=== PATIENT | male | born 1940 | race Caucasian/White ===

== ENCOUNTER 2016-08-02 01:28 | Inpatient (IN) ==
[2016-08-02] MEDS ORDERED: Benzonatate 100 MG CAPSULE PO PRN (03:02)
[2016-08-02] MEDS ORDERED: *HR* OxyCODONE/APAP 5/325 TABLET PO PRN ×2 (03:02→11:00)
[2016-08-02] MEDS ORDERED: Nitroglycerin 0.4 MG TAB.SUBL SL PRN (03:02)
[2016-08-02] MEDS ORDERED: *HR* Morphine 2 MG/ML SYRINGE IVP PRN ×2 (03:08→11:00)
[2016-08-02] MEDS ORDERED: Dextrose Gel 15 GM PO PRN ×2 (03:08)
[2016-08-02] MEDS ORDERED: Ondansetron 4 MG/2 ML VIAL IVP PRN (03:08)
[2016-08-02] MEDS ORDERED: D5% in Water 1,000 ML IVC PRN (03:08)
[2016-08-02] MEDS ORDERED: Naloxone 0.4 MG/ML INJ IVP PRN (03:08)
[2016-08-02] MEDS ORDERED: *HR* Dextrose 50 % in Water (Syg) 50 ML SYRINGE IVP PRN (03:08)
[2016-08-02] MEDS ORDERED: Acetaminophen 325 MG TABLET PO PRN (03:08)
--- NOTE | 2016-08-02 03:14 | Internal Med History&Physical ---
Date of Encounter: 08/02/16 Time of Encounter: 03:13 Assessment and Plan (1) Accelerated hypertension Current visit: Yes Status: Acute Uncontrolled hypertension Increased dose of amlodipine from 5 up to 10 mg daily Increase frequency of hydralazine from 3 times a day up to 4 times a day, add hydralazine IV as needed Continue Coreg (2) Elevated troponin Current visit: Yes Status: Acute Chronically elevated troponins Continue telemetry, trend troponins, the patient has been evaluated in the past and only medical management has been recommended Has history of CAD status post stents and CABG, continue Ranexa and Imdur Consider cardiology consult (3) Chest pain Current visit: No Status: Acute The patient will be admitted for observation, she is a DNR CC, time spent on this admission 40 minutes. Qualifiers: Chest pain type: unspecified Qualified Code(s): R07.9 - Chest pain, unspecified (4) CHF (congestive heart failure) Current visit: No Status: Acute Continue Bumex as the patient still makes urine Qualifiers: Congestive heart failure type: diastolic Congestive heart failure chronicity: unspecified congestive heart failure chronicity Qualified Code(s) : I50.30 - Unspecified diastolic (congestive) heart failure (5) DM type 2 (diabetes mellitus, type 2) Current visit: No Status: Chronic Continue insulin Qualifiers: Diabetes mellitus complication status: without complication Diabetes mellitus halfway insulin use: with halfway use Qualified Code(s): E11.9 - Type 2 diabetes mellitus without complications; Z79.4 - terminal clerk (current) use of insulin (6) Atrial fibrillation Current visit: No Status: Chronic Continue Coumadin at home doses Qualifiers: Atrial fibrillation type: chronic Qualified Code(s): I48.2 - Chronic atrial fibrillation (7) End stage renal disease Current visit: Yes Status: Acute Continue hemodialysis PPI for GI prophylaxis and Coumadin for DVT prophylaxis Internal Medicine - H&P: HPI Chief complaint: HTN and CP Admitted From: Emergency Dept History of present illness: Mr. Diaz is a 76 year old male with a past medical history of diabetes type 2 insulin-dependent, COPD status post CABG who was transferred from a nursing facility to [place] when he was evaluated. A troponin level was documented at 0.09 but the patient has chronically elevated troponins. The patient says that he started complaining of some chest pressure at around 6 PM that lasted for 1 hour, nitroglycerin helped with the pain, he was given aspirin. The patient is not complaining of any chest pain at the moment. He has been evaluated by the cardiology service in the past and only medical management has been recommended Last LHC revealed 70% distal left main stenosis. His PRABHAKAR-LAD was still patent, Vein graft-OM known to be occluded. RCA stent patent. The distal left main is supplying the circ. His blood pressure was 182/78, glucose 333 EKG shows paced rhythm, chest x-ray was unremarkable. 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, tachybradycardia syndrome status post pacemaker placement) Psychiatric history: no psych history - Past Surgical History Surgical History: angioplasty/stent, appendectomy, cholecystectomy, coronary bypass (CABG), orthopedic, other, other (Cardiac catheterization as stated above , dialysis catheter), pacemaker - Social History Smoking Status: Never smoker Smokeless Tobacco Status: No Alcohol use: none Drug use: none - Family History Sister Living Status: Still Living Hx Family Cardiac Disorders: No Hx Family Respiratory Disorders: No Hx Family Cancer: No Hx Family GI Disorders: No Hx Family Endocrine Disorder: No Hx Family Neuromuscular Disorders: No Hx Family Neurologic Disorders: Yes Hx Family HEENT Disorders: No Hx Family Autoimmune Disorders: No Father Living Status: Cause of : [place] Hx Family Cardiac Disorders: No Hx Family Respiratory Disorders: No Hx Family Cancer: Yes Hx Family GI Disorders: No Hx Family Endocrine Disorder: No Hx Family Neuromuscular Disorders: No Hx Family Neurologic Disorders: No Hx Family HEENT Disorders: No Hx Family Autoimmune Disorders: No Mother Living Status: Hx Family Cardiac Disorders: No Hx Family Respiratory Disorders: No Hx Family Cancer: No Hx Family GI Disorders: No Hx Family Endocrine Disorder: No Hx Family Neuromuscular Disorders: No Hx Family Neurologic Disorders: No Hx Family HEENT Disorders: No Hx Family Autoimmune Disorders: No - Additional Family History Additional family history: Father with myocardial infarction Internal Medicine - H&P: Meds Isosorbide MONOnitrate (24 HR) [Imdur] 60 mg PO DAILY 11/17/14 [History] Levothyroxine [Synthroid] 88 mcg PO DAILY 11/17/14 [History] Nitroglycerin [Nitrostat] 0.4 mg SL PRN PRN 11/17/14 [History] Polyethylene Glycol 3350 [MiraLAX] 17 gm PO DAILY PRN 11/17/14 [History] Ranolazine [Ranexa] 500 mg PO BID #60 tab.er.12h 11/21/14 [Rx] Fludrocortisone Acetate [Florinef] 0.1 mg PO DAILY #30 tablet 12/04/14 [Rx] Meclizine [Antivert] 12.5 mg PO TID PRN 05/11/15 [History] Albuterol Sulfate [Ventolin Hfa] 2 puff IH Q6H PRN 06/28/15 [History] Benzonatate [Tessalon] 100 mg PO TID PRN 06/28/15 [History] Cholecalciferol (Vitamin D3) [Vitamin D3] 5,000 unit PO DAILY 06/28/15 [History] GuaiFENesin ER [Mucinex] 1,200 mg PO BID 06/28/15 [History] Ipratropium/Albuterol Neb [Duoneb] 3 ml IH Q4HR PRN 06/28/15 [History] Promethazine [Phenergan] 25 mg PO Q6HR PRN 06/28/15 [History] CloNIDine HCl [Clonidine HCl] 0.2 mg PO Q8H #0 06/30/15 [Rx] Potassium Chloride 10 meq PO DAILY #30 tab.er.prt 06/30/15 [Rx] Acetaminophen [Tylenol] 650 mg PO Q6HR PRN 02/22/16 [History] Bumetanide [Bumex] 1 mg PO BID 02/22/16 [History] HydrALAZINE 25 mg PO Q8HR 02/22/16 [History] Insulin Glargine,Hum.rec.anlog [Lantus Solostar] 40 unit SQ QPM 02/22/16 [ History] Insulin LISPRO [Humalog] 10 unit SQ TIDWM 02/22/16 [History] Pantoprazole Sodium [Protonix] 40 mg PO DAILY 02/22/16 [History] Warfarin [Coumadin] 3 mg PO QTUTHSA 02/22/16 [History] Amlodipine [Norvasc] 5 mg PO DAILY 30 Days 02/27/16 [Rx] Carvedilol [Coreg] 25 mg PO BIDWM 30 Days 02/27/16 [Rx] Docusate Sodium [Colace] 200 mg PO BID 03/02/16 [History] Sennosides/Docusate Sodium [Senna Plus] 2 each PO BID tablet 03/12/16 [Rx] Meclizine [Antivert] 25 - 50 mg PO QID #30 tablet 06/25/16 [Rx] Oxycodone HCl/Acetaminophen [Percocet 5-325 mg Tablet] 1 each PO Q4HR 06/25/16 [ History] Warfarin [Coumadin] 5 mg PO QMWF 08/02/16 [History] Allergies adhesive tape Allergy (Verified 08/01/16 23:45) Rash All Systems PM: A 10-system review of systems was performed and is negative for pertinent findings except as documented above in the HPI. Review of systems: Feels weak, although she still is out of the 10 reviewed were negative. - Head Head exam: Present: atraumatic, normocephalic - Eye Eye exam: Present: PERRL, conjuntiva pink, sclera anicteric Pupils: Present: PERRL - Neck Neck exam general surgery: Present: supple, trachea midline. Absent: lymphadenopathy - Respiratory Respiratory exam: Present: CTAB. Absent: accessory muscle use, rales, rhonchi, wheezes - Cardiovascular Cardiovascular exam: Present: RRR, +S1, +S2, systolic murmur (Systolic murmur radiated to the aortic area 2 out of 6). Absent: diastolic murmur, gallop, rubs Additional comments: Right upper chest dialysis catheter - GI/Abdominal GI/Abdominal exam: Present: normal bowel sounds, soft, no peritoneal signs. Absent: distended, tenderness - Extremities Exam Extremities exam: Present: warm, radial pulses palpable and symetrical. Absent : calf tenderness, cyanotic, pedal edema - Neurological Exam Neurological exam: Present: CN II-XII intact, oriented X3, no focal deficits. Absent: pronater drift, facial droop, speech deficit - Skin Skin exam: Present: dry, intact
[2016-08-02] MEDS: Ipratropium/Albuterol Neb 3 ML IH SCH ×6 (04:13→23:23)
[2016-08-02 04:16] LABS: BUN/Creatinine Ratio 13 (6-26); Blood Urea Nitrogen 52 mg/dL (8-26); Calcium 9.1 mg/dL (8.6-10.8); Carbon Dioxide 25 mEq/L (19-29); Chloride 99 mEq/L (98-109); Chol/HDL Ratio 12.2 (0-4.9); Cholesterol 402 mg/dL (< 200); Glucose 282 mg/dL (70-99); HDL Cholesterol 33 mg/dL (40-59); Osmolality,Calculated 308 (280-300); Potassium 3.9 mEq/L (3.5-4.5); Sodium 137 mEq/L (136-145); Triglycerides 952 mg/dL (< 150); eGFR For African Americans 18 (> 60); eGFR For Non-African Americans 14 (> 60)
[2016-08-02] MEDS: hydrALAZINE 25 MG TABLET PO SCH ×3 (05:19→17:59)
[2016-08-02] MEDS: cloNIDine HCl 0.1 MG TABLET PO SCH ×2 (05:19→11:27)
[2016-08-02 07:38] LABS: INR 1.9; Prothrombin Time 20.5 Seconds (9.4-12.1)
[2016-08-02] MEDS ORDERED: INSULIN LISPRO 10 UNIT SQ SCH (08:00)
[2016-08-02] MEDS: Bumetanide 1 MG TABLET PO SCH (08:07)
[2016-08-02] MEDS: amLODIPine 5 MG TABLET PO SCH (08:08)
[2016-08-02] MEDS: Insulin LISPRO 300 UNITS/3 ML VIAL SQ SCH ×5 (08:08→18:04)
[2016-08-02] MEDS ORDERED: Isosorbide MONOnitrate (24 HR) 60 MG TAB.ER.24H PO SCH (09:00)
[2016-08-02] MEDS ORDERED: Ranolazine 500 MG TAB.ER.12H PO SCH ×2 (09:00→21:00)
[2016-08-02] MEDS ORDERED: *HR* Warfarin 5 MG TABLET PO SCH ×2 (09:00→18:00)
--- NOTE | 2016-08-02 10:03 | Internal Med Progress Note ---
<Nitish Dale - Last Filed: 08/02/16 16:17> Date of Encounter: 08/02/16 Time of Encounter: 10:00 - Assessment and plan (1) Elevated troponin Current Visit: No Status: Acute Assessment and plan: Elevated troches in the setting of known coronary artery disease with 70% stenosis of the left main. Initial troponin was 0.09 and second was 0.27 followed by 0.50. - EKG demonstrates AV paced 100%. Plan: - Cardiology consult in and evaluated the patient's patient undergo coronary catheterization - Appreciate recommendations and cardiology team. (2) CAD (coronary artery disease) Current Visit: No Status: Chronic Assessment and plan: History of coronary artery disease with severe vessel disease previous history of CABG. In February 2016 underwent coronary catheterization found to have 70% of left main stenosis. Patient presents with chest pain and elevated troponins Plan: - Continue beta huseyin, aspirin - Start Lipitor 80. - Continue Ranexa and Imdur. Qualifiers: Coronary Disease-Associated Artery/Lesion type: [place] artery [place] vs. transplanted heart: [place] heart Associated angina: with unspecified angina Qualified Code(s): I25.119 - Atherosclerotic heart disease of [place] coronary artery with unspecified angina pectoris (3) End stage renal disease Current Visit: No Status: Chronic Assessment and plan: Mr. Diaz 76-year-old male currently receiving hemodialysis for his end-stage renal failure. Consults were placed to nephrology. Plan: - Patient to hemodialysis post coronary catheterization - Avoid nephrotoxic medications and renally dose antibiotics. (4) Atrial fibrillation with slow ventricular response Current Visit: No Status: Acute Assessment and plan: Currently under warfarin therapy and AV paced. Patient was subtherapeutic with INR. Plan: - Continue warfarin therapy dosed per pharmacy with a goal range of 2.0 to 3.0 (5) Hx of CABG Current Visit: No Status: Chronic Assessment and plan: History of CABG with restenosis. Plan as above. (6) DM type 2 (diabetes mellitus, type 2) Current Visit: No Status: Chronic Assessment and plan: Patient is a known type II diabetic admitted with hyperglycemia with glucose of 333. He is insulin-dependent at home with associated comorbid factors of coronary artery disease, end-stage renal disease on hemodialysis and likely peripheral artery disease. Plan: - Continue basal dosing along with pre-meal and sliding scale. - Before meals at bedtime glucose checks Qualifiers: Diabetes mellitus complication status: without complication Diabetes mellitus time clock mechanic insulin use: with fdc use Qualified Code(s): E11.9 - Type 2 diabetes mellitus without complications; Z79.4 - human resources executive assistant (current) use of insulin (7) Diastolic CHF Current Visit: No Status: Chronic Assessment and plan: Patient is a history of diastolic heart failure with the last echocardiogram 10/2015 demonstrated a left ventricular ejection fraction 60% with mild concentric left ventricular hypertrophy and mild left ventricular diastolic dysfunction. Atypical septal motion consistent with paced rhythm. Moderate calcified aortic valve leaflets especially the noncoronary cusp. Mild aortic stenosis with a mean gradient of 14 no evidence of pulmonary hypertension. - Clinically euvolemic Plan: - Continue cardiac diet - 2 L fluid restriction - Daily weights - Strict I/O Qualifiers: Congestive heart failure chronicity: acute on chronic Qualified Code(s): I50.33 - Acute on chronic diastolic (congestive) heart failure (8) Aortic stenosis Current Visit: Yes Status: Acute Assessment and plan: Patient has a history of aortic stenosis audible murmur. Patient is asymptomatic. Qualifiers: Qualified Code(s): I35.0 - Nonrheumatic aortic (valve) stenosis - Subjective Interval history: Mr. Joe andrews has been seen and evaluated at bedside this morning. He denies any chest pain currently. He described the chest pain as crushing as if someone was sitting on his chest and was relieved with subligual nitro yesterday at the emergency department. He denies any recent CP in the past few weeks but does have discomfort with exertion. He also has leg pain and muscle aches with exertion. He is unsure of what medications he is taking as they are given to him at the snf. He has some nausea but denies any other current symptoms. - Constitutional Vitals: Temp Pulse Resp BP Pulse Ox 97.6 F 60 18 136/71 100 08/02/16 07:45 08/02/16 07:45 08/02/16 07:45 08/02/16 07:45 08/02/16 08:15 General appearance: Present: A&O X 3, pleasant, no acute distress - Eye Eye exam: Present: PERRL, conjuntiva pink, sclera anicteric Pupils: Present: PERRL - ENT ENT exam: Present: mucous membranes moist - Neck Neck exam general surgery: Present: supple, trachea midline. Absent: lymphadenopathy - Respiratory Respiratory exam: Present: CTAB. Absent: accessory muscle use, rales, rhonchi, wheezes - Cardiovascular Cardiovascular exam: Present: RRR, systolic murmur (grade 3/6 systolic ejection murmur (aortic) ). Absent: diastolic murmur, gallop, rubs Additional comments: diminished dorsal pedal and post tibial pulses - GI/Abdominal GI/Abdominal exam: Present: normal bowel sounds, soft, no peritoneal signs. Absent: distended, tenderness - Extremities Exam Extremities exam: Present: warm, radial pulses palpable and symetrical. Absent : calf tenderness, cyanotic, pedal edema - Neurological Exam Neurological exam: Present: alert, oriented X3, no focal deficits, strengths equal and symetr throughout. Absent: pronater drift, facial droop, speech deficit - Psychiatric Psychiatric exam: Present: normal affect, normal mood Internal Medicine: Result - Labs CBC & Chem 7: 08/02/16 03:47 Labs: BMP 08/02/16 03:47 Sodium 137 Potassium 3.9 Chloride 99 Carbon Dioxide 25 BUN 52 H Creatinine 4.04 H Glucose 282 H Calcium 9.1 Cardiac Enzymes 08/02/16 Range/Units 03:47 Troponin I 0.27 H* (0-0.03) ng/mL - ABG Interpretation ABG results: PT/INR, D-dimer PT 20.5 Seconds (9.4-12.1) H 08/02/16 07:16 Consult Discharge Plan - Plan Referrals: Pablo Reyes DO [Primary Care Provider] - (from [facility]) <Rasheed Krishnamurthy - Last Filed: 08/03/16 07:58> Date of Encounter: 08/03/16 - Constitutional Vitals: Temp Pulse Resp BP Pulse Ox 97.9 F 60 12 151/53 99 08/03/16 07:33 08/03/16 07:33 08/03/16 07:33 08/03/16 07:33 08/03/16 07:33 Internal Medicine: Result - Labs CBC & Chem 7: 08/03/16 04:46 08/03/16 04:46 Labs: Short CBC 08/03/16 Range/Units 04:46 WBC 5.9 (4.3-11.1) K/mcL Hgb 11.5 L (12.9-16.9) g/dL Hct 34.5 L (37.5-50.1) % Plt Count 207 (140-400) K/mcL Neutrophils # 3.7 (1.6-8.9) K/mcL BMP 08/03/16 04:46 Sodium 136 Potassium 3.7 Chloride 96 L Carbon Dioxide 30 H BUN 25 D Creatinine 2.56 H Glucose 169 H Calcium 8.9 Cardiac Enzymes 08/02/16 Range/Units 10:02 Troponin I 0.50 H* (0-0.03) ng/mL Liver Function 08/03/16 Range/Units 04:46 Total Bilirubin 0.7 (0.2-1.2) mg/dL AST 18 (5-34) Units/L ALT 13 (0-55) Units/L Alkaline Phosphatase 73 (38-126) Units/L Albumin 3.0 L (3.5-5.0) g/dL - ABG Interpretation ABG results: PT/INR, D-dimer PT 18.0 Seconds (9.4-12.1) H 08/03/16 04:46 - Attending Attestation I examined this patient and my medical decision-making was reviewed with the FIELD SUPERVISOR/PA/Advanced Practice Nurse/Resident Physician. I agree with the documented findings, disposition and treatment plan as described except to the extent set forth below. Cath today. D/W patient.
--- NOTE | 2016-08-02 10:49 | Cardiology Consult Note ---
Date of Encounter: 08/02/16 Time of Encounter: 10:45 Assessment and Plan (1) Chest pain Current Visit: No Status: Acute Per Cardiology: Episode of exertional chest pain relieved with rest and sublingual nitroglycerin. Currently chest pain-free. Qualifiers: Chest pain type: unspecified Qualified Code(s): R07.9 - Chest pain, unspecified (2) Elevated troponin Current Visit: No Status: Acute Per Cardiology: Troponins noted to be 0.01, 0.27, 0.50. Of note peak troponin February 2016 at time of last left heart catheterization was 1.35 (no intervention required at that time). Will place cardiac rehab order. (3) CAD (coronary artery disease) Current Visit: No Status: Chronic Per Cardiology: Left heart catheterization from February 2016 showed patent 1 of 2 bypass grafts : Patent PRABHAKAR to proximal LAD, occluded SVG to right PDA. Patient also noted to have patent proximal RCA stent and patent proximal LAD stent. Patient has mid left main 70% with left circumflex unbypassed. Echo from February 2016 showed EF preserved 60%, mild diastolic dysfunction, normal RV structure and function, moderately dilated left atrium, mild aortic stenosis, no pulmonary hypertension , no segmental wall motion abnormalities. Discussed and reviewed with Dr. Tejada, recommendations to increase long-acting nitrates and Ranexa in follow-up in outpatient setting for reevaluation. Trops not as high as before. If would need LHC in future, regarding CKD, patient is now on HD. Patient currently on Coumadin with INR 1.9. Cardiology will sign off, re-consult as needed, follow- up scheduled. Patient verbalized understanding and agreed to plan. Qualifiers: Coronary Disease-Associated Artery/Lesion type: [place] artery [place] vs. transplanted heart: [place] heart Associated angina: with unspecified angina Qualified Code(s): I25.119 - Atherosclerotic heart disease of [place] coronary artery with unspecified angina pectoris (4) CKD (chronic kidney disease) stage 4, GFR 15-29 ml/min Current Visit: No Status: Chronic Per Cardiology: Patient reports now on hemodialysis for the past 3 months. (5) Sick sinus syndrome Current Visit: No Status: Chronic Per Cardiology: Last pacer check 04/2016. Has Pacer. V paced. Discussion w patient/family: The assessment and plan as outlined above was discussed with the patient who expressed understanding and agreement. All questions were answered. Thank you for involving us in the care of your patient. Please call with any questions. History of Present Illness Consult date: 08/02/16 Requesting physician: Nitish Dale Consult reason: CP, CAD, Elevated Trop Chief complaint: CP History of present illness: Mr. Diaz is a 76 year old male developed past medical history of CAD with CABG , axis small atrial fibrillation on Coumadin, diabetes mellitus type 2, hypertension, COPD, and history of anemia. Cardiology consult for chest pain and troponin elevation. Patient reports he resides at [facility] [place] [facility]. Reports was participating at a [employer] yesterday afternoon and while walking developed midsternal chest pressure/heaviness. He reports symptoms lasted for a few minutes and subsided with nitroglycerin sublingual 2. He does report accompanying shortness of breath. Denies any other accompany symptoms. Prior to this episode has not had any chest pain symptoms for the past few months. He denies any chest pain currently. Reports compliance with medications. Past Med Surg Social Fam HX - Past Medical History Attestation: Yes The following information was validated with the patient. 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, tachybradycardia syndrome status post pacemaker placement) Psychiatric history: no psych history - Past Surgical History Surgical History: angioplasty/stent, appendectomy, cholecystectomy, coronary bypass (CABG), orthopedic, other, other (Cardiac catheterization as stated above , dialysis catheter), pacemaker - Social History Smoking Status: Never smoker Smokeless Tobacco Status: No Alcohol use: none Drug use: none - Family History Sister Living Status: Still Living Hx Family Cardiac Disorders: No Hx Family Respiratory Disorders: No Hx Family Cancer: No Hx Family GI Disorders: No Hx Family Endocrine Disorder: No Hx Family Neuromuscular Disorders: No Hx Family Neurologic Disorders: Yes Hx Family HEENT Disorders: No Hx Family Autoimmune Disorders: No Father Living Status: Cause of : [place] Hx Family Cardiac Disorders: No Hx Family Respiratory Disorders: No Hx Family Cancer: Yes Hx Family GI Disorders: No Hx Family Endocrine Disorder: No Hx Family Neuromuscular Disorders: No Hx Family Neurologic Disorders: No Hx Family HEENT Disorders: No Hx Family Autoimmune Disorders: No Mother Living Status: Hx Family Cardiac Disorders: No Hx Family Respiratory Disorders: No Hx Family Cancer: No Hx Family GI Disorders: No Hx Family Endocrine Disorder: No Hx Family Neuromuscular Disorders: No Hx Family Neurologic Disorders: No Hx Family HEENT Disorders: No Hx Family Autoimmune Disorders: No Medications and Allergies Isosorbide MONOnitrate (24 HR) [Imdur] 60 mg PO DAILY 11/17/14 [History] Levothyroxine [Synthroid] 88 mcg PO DAILY 11/17/14 [History] Nitroglycerin [Nitrostat] 0.4 mg SL PRN PRN 11/17/14 [History] Polyethylene Glycol 3350 [MiraLAX] 17 gm PO DAILY PRN 11/17/14 [History] Ranolazine [Ranexa] 500 mg PO BID #60 tab.er.12h 11/21/14 [Rx] Fludrocortisone Acetate [Florinef] 0.1 mg PO DAILY #30 tablet 12/04/14 [Rx] Albuterol Sulfate [Ventolin Hfa] 2 puff IH Q6H PRN 06/28/15 [History] Benzonatate [Tessalon] 100 mg PO TID PRN 06/28/15 [History] Cholecalciferol (Vitamin D3) [Vitamin D3] 5,000 unit PO DAILY 06/28/15 [History] GuaiFENesin ER [Mucinex] 1,200 mg PO BID 06/28/15 [History] Ipratropium/Albuterol Neb [Duoneb] 3 ml IH Q4HR PRN 06/28/15 [History] Promethazine [Phenergan] 25 mg PO Q6HR PRN 06/28/15 [History] CloNIDine HCl [Clonidine HCl] 0.2 mg PO Q8H #0 06/30/15 [Rx] Potassium Chloride 10 meq PO DAILY #30 tab.er.prt 06/30/15 [Rx] Acetaminophen [Tylenol] 650 mg PO Q6HR PRN 02/22/16 [History] Bumetanide [Bumex] 1 mg PO BID 02/22/16 [History] HydrALAZINE 25 mg PO Q8HR 02/22/16 [History] Insulin Glargine,Hum.rec.anlog [Lantus Solostar] 40 unit SQ QPM 02/22/16 [ History] Insulin LISPRO [Humalog] 10 unit SQ TIDWM 02/22/16 [History] Pantoprazole Sodium [Protonix] 40 mg PO DAILY 02/22/16 [History] Warfarin [Coumadin] 3 mg PO SUTUTHSA 02/22/16 [History] Amlodipine [Norvasc] 5 mg PO DAILY 30 Days 02/27/16 [Rx] Carvedilol [Coreg] 25 mg PO BIDWM 30 Days 02/27/16 [Rx] Docusate Sodium [Colace] 200 mg PO BID 03/02/16 [History] Sennosides/Docusate Sodium [Senna Plus] 2 each PO BID tablet 03/12/16 [Rx] Meclizine [Antivert] 25 - 50 mg PO QID #30 tablet 06/25/16 [Rx] Oxycodone HCl/Acetaminophen [Percocet 5-325 mg Tablet] 1 tab PO Q4HR PRN [History] Warfarin [Coumadin] 5 mg PO QMWF 08/02/16 [History] Allergies adhesive tape Allergy (Verified 08/01/16 23:45) Rash All Systems Review: A 10-system review of systems was performed and is negative for pertinent findings except as documented above in the HPI. - Cardiovascular Cardiovascular: as per HPI, chest pain with exertion, dyspnea on exertion Physical Examination Vital Signs, Last 4 Hours Temp Pulse Resp BP Pulse Ox 08/02/16 08:15 100 08/02/16 07:45 97.6 F 60 18 136/71 100 General: Conversant, No Apparent Distress HEENT: Atraumatic, Normocephaly, Mucus Membranes Moist Neck: No JVD, Normal carotid pulses Cardiac: Reg Rate and Rhythm, Normal S1 and S2, No Murmur Lungs: Normal Breath Sounds, No Wheeze, Rales, Rhonchi Neuro: Alert and responsive, No focal deficits noted Abdomen: Soft, Non-Tender Skin: No rashes noted on visualized skin Musculoskeletal: No Chest Wall Tenderness Extremities: No Edema, Normal Pulses Results 08/02/16 03:47 Lab Results Laboratory Tests 03/12/16 03/15/16 06/25/16 06:09 05:35 12:50 WBC Hgb Hct Plt Count INR Creatinine 2.87 H 3.70 H Est GFR (Non-Af Amer) 22 L 16 L 15 L Troponin I Triglycerides 08/02/16 08/02/16 08/02/16 00:00 00:00 00:00 WBC 7.1 Hgb 12.1 L Hct 35.9 L Plt Count 264 INR Creatinine Est GFR (Non-Af Amer) 14 L Troponin I 0.09 H* Triglycerides 08/02/16 08/02/16 08/02/16 03:47 03:47 07:16 WBC Hgb Hct Plt Count INR 1.9 Creatinine 4.04 H Est GFR (Non-Af Amer) 14 L Troponin I 0.27 H* Triglycerides 952 H 08/02/16 10:02 WBC Hgb Hct Plt Count INR Creatinine Est GFR (Non-Af Amer) Troponin I 0.50 H* Triglycerides Intake & Output 07/30/16 07/31/16 08/01/16 08/02/16 23:59 23:59 23:59 23:59 Intake Total 240 / 240 Output Total 0 / 0 Balance 240 / 240 Weight 78.8 kg Active Medications Acetaminophen (Tylenol) 650 mg PO Q6HR PRN PRN Reason: Mild Pain (1-3) Stop: 02/01/17 03:09 Albuterol Sulfate (Albuterol Inhaler) 2 puff IH [id number] [facility] Stop: 02/01/17 04:01 Last Admin: 08/02/16 04:13 Dose: Not Given Albuterol/Ipratropium (Duoneb) 3 ml IH [id number] [facility] PRN Reason: Protocol Stop: 02/01/17 04:01 Last Admin: 08/02/16 07:46 Dose: 3 ml Amlodipine Besylate (Norvasc) 10 mg PO DAILY [facility] PRN Reason: Protocol Stop: 02/01/17 09:01 Last Admin: 08/02/16 08:08 Dose: 10 mg Benzonatate (Tessalon) 100 mg PO TID PRN PRN Reason: Cough Stop: 02/01/17 03:03 Bumetanide (Bumex) 1 mg PO BID [facility] Stop: 02/01/17 09:01 Last Admin: 08/02/16 08:07 Dose: 1 mg Carvedilol (Coreg) 25 mg PO BIDWM [place] PRN Reason: Protocol Stop: 02/01/17 08:01 Last Admin: 08/02/16 08:08 Dose: 25 mg Clonidine HCl (Clonidine Hcl) 0.2 mg PO Q8H [facility] Stop: 02/01/17 03:16 Last Admin: 08/02/16 05:19 Dose: 0.2 mg Dextrose/Water (Dextrose 50% (Syg)) 25 ml IVP AD PRN PRN Reason: Hypoglycemia Stop: 02/01/17 03:09 Glucagon (Glucagen) 1 mg IM ONCE PRN PRN Reason: Hypoglycemia Stop: 02/01/17 03:09 Glucose (Gluctose) 15 gm PO ONCE PRN PRN Reason: Hypoglycemia Stop: 02/01/17 03:09 Glucose (Gluctose) 30 gm PO ONCE PRN PRN Reason: Hypoglycemia Stop: 02/01/17 03:09 Hydralazine HCl (Hydralazine) 25 mg PO Q6H [facility] Stop: 02/01/17 03:16 Last Admin: 08/02/16 08:07 Dose: 25 mg Hydralazine HCl (Hydralazine) 20 mg IVP Q6HR PRN PRN Reason: Hypertension Stop: 02/01/17 03:12 Dextrose (Dextrose 5%) 1,000 mls @ 100 mls/hr IVC .Q10H PRN PRN Reason: HYPOGLYCEMIA Stop: 02/01/17 03:09 Insulin Detemir (Levemir) 40 unit SQ QPM [facility] Stop: 02/01/17 18:01 Insulin Human Lispro (Humalog) 10 units SQ TIDWM [facility] Stop: 02/01/17 08:01 Last Admin: 08/02/16 08:08 Dose: 10 units Isosorbide Mononitrate (Imdur) 60 mg PO DAILY [facility] Stop: 02/01/17 09:01 Last Admin: 08/02/16 08:17 Dose: 60 mg Levothyroxine Sodium (Synthroid) 88 mcg PO DAILY@0630 [facility] Stop: 02/02/17 06:31 Morphine Sulfate (Morphine Sulfate) 2 mg IVP Q4HR PRN PRN Reason: Severe Pain (7-10) Stop: 02/01/17 03:09 Naloxone HCl (Narcan) 0.4 mg IVP Q2MIN PRN PRN Reason: Opioid Reversal Stop: 02/01/17 03:09 Nitroglycerin (Nitroglycerin) 0.4 mg SL Q5MIN PRN PRN Reason: CHEST PAIN Stop: 02/01/17 03:03 Omeprazole (Prilosec) 20 mg PO DAILY [facility] Stop: 02/01/17 09:01 Last Admin: 08/02/16 08:07 Dose: 20 mg Ondansetron HCl (Zofran) 4 mg IVP Q8HR PRN PRN Reason: Nausea And Vomiting Stop: 02/01/17 03:09 Oxycodone/Acetaminophen (Percocet 5/325) 1 each PO Q4HR PRN PRN Reason: pain Stop: 02/01/17 04:01 Potassium Chloride (Potassium Chloride) 10 meq PO DAILY [facility] Stop: 02/01/17 09:01 Last Admin: 08/02/16 08:07 Dose: 10 meq Ranolazine (Ranexa) 500 mg PO BID [facility] Stop: 02/01/17 09:01 Last Admin: 08/02/16 08:07 Dose: 500 mg Warfarin Sodium (Coumadin Perpt) 1 each PO DAILY@1800 PRN PRN Reason: SEE COMMENTS Stop: 02/01/17 18:01 Warfarin Sodium (Coumadin) 5 mg PO [id number] [facility] Stop: 02/01/17 18:01 Warfarin Sodium (Coumadin) 3 mg PO [id number]@1800 [facility] Stop: 02/02/17 18:01 - Imaging and Cardiology Echo: report reviewed Cardiac cath: report reviewed - EKG Interpretation EKG results cardiology: personally reviewed, ventricular paced rhythm, other ( avg HR 64, no significant events noted) Consult Discharge Plan - Plan Referrals: Pablo Reyes DO [Primary Care Provider] - (from [facility])
[2016-08-02] MEDS ORDERED: Sennosides/Docusate Sodium TABLET PO PRN (11:06)
[2016-08-02] MEDS ORDERED: 0.9 % Sodium Chloride 250 ML IVC PRN (12:31)
[2016-08-02] MEDS ORDERED: *HR* Heparin 10,000 UNIT/10 ML VIAL IV PRN (12:31)
[2016-08-02] MEDS ORDERED: 0.9 % Sodium Chloride 1,000 ML PRIME SCH (12:45)
[2016-08-02 13:32] LABS: Hepatitis B Surface Antibody 0.05 mIU/mL; Hepatitis B Surface Antigen Nonreactive (Nonreactive)
[2016-08-02] MEDS ORDERED: Verapamil 5 MG/2 ML VIAL ONE (15:01)
[2016-08-02] MEDS ORDERED: *HR* Heparin 10,000 UNIT/10 ML VIAL ONE (15:02)
[2016-08-02] MEDS ORDERED: Heparin 1,000 UNITS/500 mL NS 500 ML ONE (15:02)
[2016-08-02] MEDS ORDERED: Nitroglycerin 1,000 MCG/10 ML VIAL IV ONE (15:02)
[2016-08-02] MEDS ORDERED: 0.9 % Sodium Chloride 1,000 ML ONE ×2 (15:02→15:09)
--- NOTE | 2016-08-02 15:23 | Pre-Sedation Evaluation ---
Pre-sedation evaluation - Pre-sedation checklist Date of procedure: 08/02/16 Procedure: heart cath Recent Vitals: Last Vital Signs Temp 98.3 F 08/02/16 11:30 Pulse 63 08/02/16 11:30 Resp 18 08/02/16 11:30 BP 168/64 08/02/16 11:30 Pulse Ox 100 08/02/16 11:30 H&P (including ROS) documented in medical record: Yes Previous reaction to sedatives/anesthetics: No Dietary Status: NPO 6 hours prior to procedure Dentition: No loose teeth or bridges ASA Classification *see protocol: CLASS II-Mild systemic disease Plan of Care: Pt appropriate candidate for procedure/moderate/conscious sedation , Risks/benefits of procedure/sedation discussed w/ patient/family
[2016-08-02] MEDS ORDERED: *HR* Ticagrelor 90 MG TABLET ONE (15:25)
[2016-08-02] MEDS ORDERED: Aspirin 81 MG TAB.CHEW ONE (15:26)
[2016-08-02] MEDS ORDERED: *HR* Midazolam HCl 2 MG/2 ML VIAL ONE (15:44)
[2016-08-02] MEDS ORDERED: *HR* FentaNYL (PF) 100 MCG/2 ML VIAL ONE (15:45)
--- NOTE | 2016-08-02 17:10 | Invasive Diagnostic Lab Proc ---
Name: Marino Diaz Date of Study: 08/02/2016 Date: 1940 Ht: 66.1in Medical Record#: [id number] Age: 76 Wt: 171.96lb Gender: Male BSA: 1.88 Order #: [id number] BMI: 27.64 Physicians Procedure Physician: Gregg Tejada MD, [facility] Referring MD: Referring MD: Staff Name Position Time In Jessica Padilla RN Monitor 03:28 PM Jessica Lewis RN Grove Superintendent 03:28 PM Krystian Hoffman RN Scrub 03:28 PM Sites, Jazmin RT (R) RT 03:47 PM Indications Indication Non-Stemi Procedures Performed Procedure L HRT ART/GRFT ANGIO PRQ CARD ELOISA STENT W/ANGIO 1 VSL Pre-Procedure Checklist Informed consent is complete signed and on chart. H\\T\\P is on chart. ID band is on and ID verified with patient. Patient NPO for procedure The procedure was described for the patient and questions were answered. Blood Pressure: 168/64 ECG is on chart. Rhythm: Paced Plan of Care Patient will tolerate the procedure without complications. Adequate level of comfort will be maintained. Hemodynamics will remain stable Patient will recover from procedure without complications. Respiratory function will be maintained. Cardiac rhythm will remain stable. Patient temperature will be maintained. Patient and/or family have verbalized understanding of the procedure. Patient Education Chief Complaint/Reason for Test: Cardiac Cath Developmental Category: Geriatric (65+ years) Developmentally Appropriate for Age: Yes Learning Barriers: None Education Needs: Procedure Education Method: Verbal Information Taught: Cardiac Cath Educational Evaluation: Able to repeat information Intravenous Access Time IV Size Location DC'd Fluid/Drip Rate Units RN 03:30 PM 18g 1 04/21" Patent On Arrival Lt Antecubital 0.9NaCl 25 ml/hr Jessica Lewis RN Allergies adhesive tape Vital Signs Time BP (mmHg) HR (bpm) O2 Sat. RR (bpm) LOC 03:49 PM / % 4 = Oriented but drowsy 03:50 PM / % 4 = Oriented but drowsy 03:46 PM 169 / 76 68 % 21 03:51 PM 151 / 49 62 92 % 18 03:56 PM 109 / 97 62 100 % 15 04:01 PM 123 / 51 61 100 % 04:06 PM 143 / 60 63 96 % 13 04:11 PM 144 / 61 62 100 % 15 04:16 PM 146 / 58 62 98 % 17 04:21 PM 144 / 54 63 98 % 17 04:26 PM 139 / 58 65 100 % 16 04:31 PM 155 / 66 64 95 % 19 04:36 PM 152 / 60 65 92 % 18 04:41 PM 157 / 62 65 99 % 26 Procedural Medications Time Medication Dose Units Method Given By 03:47 PM Oxygen 2 L/min nasal cannula Jessica Lewis RN 03:48 PM Versed 2 mg Intravenous Jessica Lewis RN 03:49 PM Fentanyl 50 mcg Intravenous Jessica Lewis RN 03:35 PM Brilinta 180 mg Orally Jessica Lewis RN 03:35 PM Aspirin (81mg) 324 mg Orally Jessica Lewis RN 04:01 PM Lidocaine 2% 20 ml Subcutaneous Gregg Tejada MD, [facility] 04:16 PM Heparin 4000 units Intravenous Jessica Lewis RN ASA Classification: CLASS II- Mild systemic disease (i.e. well-controlled diabetes, hypertension, asthma, cigarette smoking) Daisy Score Preprocedure Postprocedure Activity 2- Moves 4 extremities sustained head lift Activity 2- Moves 4 extremities sustained head lift Circulation 2- SBP +/= 20 points of pre-anesthetic level Circulation 2- SBP +/= 20 points of pre-anesthetic level Consciousness 2- Awake and alert oriented x 3 Consciousness 2- Awake and alert oriented x 3 O2 Saturation 2- Able to maintain O2 satruation of 92% on room air O2 Saturation 2- Able to maintain O2 satruation of 92% on room air Respiratory 2- Able to deep breathe and cough well Respiratory 2- Able to deep breathe and cough well Total Score 10 Total Score 10 Contrast Agent: Isovue Diagnostic Contrast: 105 ml Total Contrast: 105 ml Fluoro Dose: 816 mGy Activated Clotting Time Time Seconds to Clot 04:50 PM 400 Procedure Log Time Note Enter By 03:25 PM CathStat 03:28 PM Jessica Padilla RN Position: Monitor Time in: 15:28 scoates 03:28 PM Jessica Lewis RN Position: Grove Superintendent Time in: 15:28 scoates 03:28 PM Krystian Hoffman RN Position: Scrub Time in: 15:28 scoates 03:28 PM Patient charges- Angio tray pack, Navilyst 3mm J, Pulse Oximetry and ACIST tubing and transducer scoates 03:33 PM Pt arrived to blood bank laboratory technician 2 at 15:33 scoates 03:33 PM Case Delayed No scoates 03:33 PM Meet and greet completed scoates 03:33 PM Sign in performed according to hospital policy. scoates 03:34 PM Procedure start 15:33 scoates 03:45 PM Vitals capture started with the following parameters, Patient=Adult, Interval=5 min, Initial Pkhcshko=159 mmHg, Deflation Rate=5 mmHg, Cuff placed on Left Arm 03:46 PM HR=68 bpm, WZEU=571/76 mmhg, Resp=21 B/min 03:47 PM Jazmin Traore RT (R) Position: RT Time in: 15:47 scoates 03:47 PM Case Delayed no, inpatient scoates 03:47 PM Hair removed from procedure site in procedure lab using clippers. Bilateral groin prepped with Chloraprep by Jazmin Traore RT (R), safety strap applied then patient was draped. Skin intact. scoates 03:48 PM Time: 15:47 Oxygen on at 2 L/min per nasal cannula by Jessica Lewis RN scoates 03:48 PM Time: 15:48 Versed 2 mg Intravenous Given by Jessica Lewis RN scoates 03:49 PM Time: 15:49 Fentanyl 50 mcg Intravenous Given by Jessica Lewis RN scoates 03:49 PM Time: 15:49 Patient comfortable and pain free: Yes scoates 03:50 PM Time: 15:49LOC: 4 = Oriented but drowsy scoates 03:51 PM HR=62 bpm, GEWK=328/49 mmhg, SpO2=92.0 %, Resp=18 B/min, Comment=sr 03:52 PM Clinical Presentation: Non-STEMI scoates 03:56 PM HR=62 bpm, GFNU=742/97 mmhg, FnW7=862.0 %, Resp=15 B/min, Comment=sr 03:56 PM Pressure channel 1 zeroed. 03:59 PM Time out performed according to hospital policy scoates 04:00 PM Time: 15:35 Brilinta 180 mg Orally Given by Jessica Lewis RN given crushed, per scoates 04:01 PM HR=61 bpm, XGLK=038/51 mmhg, VuU0=996.0 %, Comment=sr 04:01 PM Time: 15:35 Aspirin (81mg) 324 mg Orally Given by Jessica Lewis RN Given crushed, per scoates 04:01 PM Time: 16:01 20 ml Lidocaine 2% to right groin Subcutaneous Given by Gregg Tejada MD, [facility] scoates 04:03 PM Access obtained by percutaneous puncture. 6Fr 10cm Terumo Destination sheath placed in right Femoral artery. [id number] scoates 04:03 PM 5Fr FR 4 catheter inserted over the wire DNC scoates 04:04 PM Time: 15:49 Patient comfortable and pain free: Yes scoates 04:05 PM Time: 15:50LOC: 4 = Oriented but drowsy scoates 04:05 PM RCA angiography performed in multiple views. scoates 04:06 PM Recorded Pressure: Ao, HR=64, Condition=Condition 1 (Aorta) Ao 122/53/83 04:06 PM HR=63 bpm, CVJJ=165/60 mmhg, SpO2=96.0 %, Resp=13 B/min, Comment=sr 04:08 PM 0.035 300cm wholey wire [id number] scoates 04:08 PM wholey wire removed intact scoates 04:09 PM 0.035 260cm Navilyst 3mmJ wire [id number] scoates 04:09 PM Pressure channel 1 zero failed. 04:09 PM Pressure channel 1 zeroed. 04:10 PM Catheter removed scoates 04:10 PM Wire removed scoates 04:10 PM 5Fr IM catheter inserted over the wire [id number] scoates 04:11 PM HR=62 bpm, RBLZ=371/61 mmhg, FrN9=633.0 %, Resp=15 B/min, Comment=sr 04:11 PM Left JOSE to the LAD angio performed in multiple views. scoates 04:12 PM Catheter removed scoates 04:12 PM 5Fr Pigtail catheter inserted over the wire DNC scoates 04:14 PM Recorded Pressure: LV, HR=62, Condition=Condition 1 (Left Ventricle) LV 176/9/26 04:14 PM Catheter selectively placed in left ventricle scoates 04:14 PM Bolus angiogram of left Ventricle complete: 10 ml/sec for a total of 20 mls scoates 04:14 PM Recorded Pressure: LV, Ao, HR=65, Condition=Condition 1 (Left Ventricle) LV 167/18/56, (Aorta) Ao 167/56/92 04:16 PM PCI Status Urgent scoates 04:16 PM HR=62 bpm, LEEQ=252/58 mmhg, SpO2=98.0 %, Resp=17 B/min, Comment=sr 04:16 PM Time: 16:16 Heparin 4000 units Intravenous Given by Jessica Lewis RN scoates 04:17 PM 6Fr EBU 3.5 Medtronic guide catheter was used to cannulate the PCI vessel successfully. reused? No scoates 04:17 PM Inflation device was opened. scoates 04:18 PM Guide catheter removed intact. scoates 04:19 PM 6Fr JL4 Runway guide catheter was used to cannulate the PCI vessel successfully. reused? No scoates 04:19 PM .014 PT Graphix 182cm guide wire across target lesion- successful. reused? No scoates 04:20 PM Time: 16:04 Patient comfortable and pain free: Yes scoates 04:20 PM Recorded Pressure: Ao, HR=62, Condition=Condition 1 (Aorta) Ao 147/53/85 04:21 PM HR=63 bpm, ALBP=682/54 mmhg, SpO2=98.0 %, Resp=17 B/min, Comment=sr 04:23 PM Recorded Pressure: Ao, HR=63, Condition=Condition 1 (Aorta) Ao 137/53/82 04:23 PM Coronary Dominance: right scoates 04:23 PM Lesion found in LMCA. Pre Stenosis: 90 Pre CHATA Flow: scoates 04:23 PM Lesion found in Proximal LAD. Pre Stenosis: 100 Pre CHATA Flow: scoates 04:25 PM 2.0 mm x 8 mm Emerge Monorail balloon across target lesion- successful. reused? No scoates 04:25 PM Balloon inflated @ 10 nahun for 15 seconds scoates 04:26 PM HR=65 bpm, VLBY=901/58 mmhg, MsK3=131.0 %, Resp=16 B/min, Comment=sr 04:27 PM Balloon catheter removed intact. scoates 04:28 PM 2.25mm x 12mm Synergy drug-eluting stent across target lesion- successful Lot #[id number] scoates 04:29 PM Stent deployed @ 12 nahun for 21 seconds scoates 04:31 PM HR=64 bpm, EUIK=240/66 mmhg, SpO2=95.0 %, Resp=19 B/min, Comment=sr 04:31 PM Stent delivery system removed intact. scoates 04:31 PM 2.25 mm x 12mm NC Trek Rx balloon across target lesion- successful. reused? No scoates 04:32 PM Recorded Pressure: Ao, HR=63, Condition=Condition 1 (Aorta) Ao 111/30/59 04:33 PM Balloon inflated @ 18 nahun for 31 seconds scoates 04:34 PM Balloon inflated @ 18 nahun for 20 seconds scoates 04:35 PM Time: 16:20 Patient comfortable and pain free: Yes scoates 04:36 PM HR=65 bpm, QCBJ=226/60 mmhg, SpO2=92.0 %, Resp=18 B/min, Comment=sr 04:37 PM Balloon catheter removed intact. scoates 04:37 PM Guide wire removed intact. scoates 04:37 PM Guide catheter removed intact. scoates 04:38 PM Recorded Pressure: Ao, HR=65, Condition=Condition 1 (Aorta) Ao 171/55/96 04:38 PM Bolus angiogram of right Femoral complete: 4 ml/sec for a total of 7 mls scoates 04:40 PM Procedure completed at 16:40 scoates 04:41 PM HR=65 bpm, HJPH=929/62 mmhg, SpO2=99.0 %, Resp=26 B/min, Comment=sr 04:41 PM Sign out completed: Radiation Dose 816 mGy Fluoro Time: 12 Isovue 370 - 200ml contrast 105 ml given by Gregg Tejada MD, [facility]. Complications: NoneCardiac Rehab Consult needed: NoConfirmed administered medications: Yes scoates 04:42 PM Arterial sheath pulled, Mynx closure device used and was Successful [id number] S/N. scoates 04:43 PM Post ECG Paced scoates 04:48 PM Post Blood Pressure 161/63 scoates 04:49 PM Information taught Cardiac Cath, PCI, and Vasc Band scoates 04:49 PM Education needs Procedure, Plan of Care, and Responsibilities of Patient in Care scoates 04:49 PM Learning barriers :None scoates 04:49 PM Education Methods Verbal scoates 04:49 PM Education evaluation Able to repeat information scoates 04:50 PM ACT 400 scoates 04:50 PM Site status No bleeding/hematoma - Rt Groin as reported by Krystian Hoffman RN at 16:50 scoates 04:50 PM Opsite applied scoates 04:50 PM Plavix, Effient or Brilinta given Yes scoates 04:50 PM Delay to floor No scoates 04:50 PM Family not present, is calling his Yesica scoates 04:56 PM Complications: None scoates 04:57 PM Fluoro Time: 12 scoates 04:58 PM Report given to Hedy LOWRY Pt taken to 2N Room #11. 16:58 scoates 04:58 PM ordered for patient to have dialysis tonight since patient didnt get it scoates 05:04 PM Patient out of room: 17:04 scoates Complications Complication None None Hemodynamics Pressures Site Systolic/A Wave Diastolic/V Wave Mean AO 122 53 83 LV 176 9 26 LV 167 18 56 AO 167 56 92 AO 147 53 85 AO 137 53 82 AO 111 30 59 AO 171 55 96 Post Procedure Information Blood Pressure: 161/63 mmHg Rhythm: Paced Post procedural instructions were given Closure Device Time Device Success/Fail 08/02/2016 4:49:00 PM MynxGrip Successful Site Checks Time Location Status Staff Sheath In? Note 04:50 PM Rt Groin No bleeding/hematoma Krystian Hoffman RN Pulses Time Site Pre-Procedure Post-Procedure Note 08/02/2016 3:30:00 PM Bilateral DP \\T\\ PT Updated by Jazmin Traore RT (R) on 08/02/2016 5:05:55 PM Jazmin Traore RT electronically signed on 08/02/2016 5:06:37 PM with status of Final
[2016-08-02] MEDS ORDERED: Warfarin perPT PO PRN (18:00)
[2016-08-02] MEDS ORDERED: Insulin DETEMIR 100 UNIT/ML X5UNITS SQ SCH (18:00)
--- NOTE | 2016-08-02 19:10 | Nephrology Consult Note ---
Date of Encounter: 08/02/16 Time of Encounter: 12:00 Assessment and Plan (1) End stage renal disease Current Visit: Yes Status: Acute Will plan on HD today for 3hrs with UF goal of 0-1kg as tolerated from a hemodynamic standpoint Lytes stable (2) Accelerated hypertension Current Visit: Yes Status: Acute BP stable at 150s systolic after changes made by primary team which is acceptable. BP may improve further with UF after HD (3) Elevated troponin Current Visit: Yes Status: Acute Agrre with cardiology evaluation, primary team to request History of Present Illness - Reason for Consult Consult date: 08/02/16 end stage renal disease Requesting physician: Jose Cabrera - History of Present Illness 76 y o male with PMH of DM, HTN, CAD s/p CABG, CHF, Afib on anticoag, COPD and ESRD admitted with chest pain along with accelerated HTN. Renal consulted for management of ESRD on HD. Last HD was on tuesday. Pt seen and examined still chest pain though lessen in intensity at rest. 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, tachybradycardia syndrome status post pacemaker placement) Psychiatric history: no psych history - Past Surgical History Surgical History: angioplasty/stent, appendectomy, cholecystectomy, coronary bypass (CABG), orthopedic, other, other (Cardiac catheterization as stated above , dialysis catheter), pacemaker - Social History Smoking Status: Never smoker Smokeless Tobacco Status: No Alcohol use: none Drug use: none - Family History Sister Living Status: Still Living Hx Family Cardiac Disorders: No Hx Family Respiratory Disorders: No Hx Family Cancer: No Hx Family GI Disorders: No Hx Family Endocrine Disorder: No Hx Family Neuromuscular Disorders: No Hx Family Neurologic Disorders: Yes Hx Family HEENT Disorders: No Hx Family Autoimmune Disorders: No Father Living Status: Cause of : [place] Hx Family Cardiac Disorders: No Hx Family Respiratory Disorders: No Hx Family Cancer: Yes Hx Family GI Disorders: No Hx Family Endocrine Disorder: No Hx Family Neuromuscular Disorders: No Hx Family Neurologic Disorders: No Hx Family HEENT Disorders: No Hx Family Autoimmune Disorders: No Mother Living Status: Hx Family Cardiac Disorders: No Hx Family Respiratory Disorders: No Hx Family Cancer: No Hx Family GI Disorders: No Hx Family Endocrine Disorder: No Hx Family Neuromuscular Disorders: No Hx Family Neurologic Disorders: No Hx Family HEENT Disorders: No Hx Family Autoimmune Disorders: No Medications and Allergies Isosorbide MONOnitrate (24 HR) [Imdur] 60 mg PO DAILY 11/17/14 [History] Levothyroxine [Synthroid] 88 mcg PO DAILY 11/17/14 [History] Nitroglycerin [Nitrostat] 0.4 mg SL PRN PRN 11/17/14 [History] Polyethylene Glycol 3350 [MiraLAX] 17 gm PO DAILY PRN 11/17/14 [History] Ranolazine [Ranexa] 500 mg PO BID #60 tab.er.12h 11/21/14 [Rx] Fludrocortisone Acetate [Florinef] 0.1 mg PO DAILY #30 tablet 12/04/14 [Rx] Albuterol Sulfate [Ventolin Hfa] 2 puff IH Q6H PRN 06/28/15 [History] Benzonatate [Tessalon] 100 mg PO TID PRN 06/28/15 [History] Cholecalciferol (Vitamin D3) [Vitamin D3] 5,000 unit PO DAILY 06/28/15 [History] GuaiFENesin ER [Mucinex] 1,200 mg PO BID 06/28/15 [History] Ipratropium/Albuterol Neb [Duoneb] 3 ml IH Q4HR PRN 06/28/15 [History] Promethazine [Phenergan] 25 mg PO Q6HR PRN 06/28/15 [History] CloNIDine HCl [Clonidine HCl] 0.2 mg PO Q8H #0 06/30/15 [Rx] Potassium Chloride 10 meq PO DAILY #30 tab.er.prt 06/30/15 [Rx] Acetaminophen [Tylenol] 650 mg PO Q6HR PRN 02/22/16 [History] Bumetanide [Bumex] 1 mg PO BID 02/22/16 [History] HydrALAZINE 25 mg PO Q8HR 02/22/16 [History] Insulin Glargine,Hum.rec.anlog [Lantus Solostar] 40 unit SQ QPM 02/22/16 [ History] Insulin LISPRO [Humalog] 10 unit SQ TIDWM 02/22/16 [History] Pantoprazole Sodium [Protonix] 40 mg PO DAILY 02/22/16 [History] Warfarin [Coumadin] 3 mg PO SUTUTHSA 02/22/16 [History] Amlodipine [Norvasc] 5 mg PO DAILY 30 Days 02/27/16 [Rx] Carvedilol [Coreg] 25 mg PO BIDWM 30 Days 02/27/16 [Rx] Docusate Sodium [Colace] 200 mg PO BID 03/02/16 [History] Sennosides/Docusate Sodium [Senna Plus] 2 each PO BID tablet 03/12/16 [Rx] Meclizine [Antivert] 25 - 50 mg PO QID #30 tablet 06/25/16 [Rx] Oxycodone HCl/Acetaminophen [Percocet 5-325 mg Tablet] 1 tab PO Q4HR PRN [History] Warfarin [Coumadin] 5 mg PO QMWF 08/02/16 [History] Allergies adhesive tape Allergy (Verified 08/01/16 23:45) Rash Review of Systems All Systems: reviewed and no additional remarkable complaints except as stated ( 10 systems reviewed) Exam - Vital Signs Vital signs: Initial Vital Signs Pulse Resp BP Pulse Ox 69 18 179/69 100 08/02/16 03:08 08/02/16 03:08 08/02/16 03:08 08/02/16 03:08 Vital Signs - Last 8 Hours Temp Pulse Resp BP Pulse Ox 08/02/16 18:40 97.5 F L 60 14 143/92 100 08/02/16 18:29 97.5 F L 60 14 143/92 100 08/02/16 18:02 97.3 F L 62 13 163/65 100 08/02/16 17:51 97.2 F L 61 12 159/67 100 08/02/16 17:32 97.6 F 60 12 149/56 93 08/02/16 17:29 94 08/02/16 17:15 97.3 F L 63 12 156/59 88 08/02/16 11:30 98.3 F 63 18 168/64 100 Intake and Output 08/02/16 08/02/16 08/02/16 07:59 15:59 23:59 Intake Total 240 / 240 Output Total 0 / 0 Balance 240 / 240 Intake: Oral 240 / 240 Output: Urine 0 / 0 Other: Meal Breakfast Percent of Meal Consumed 75% Weight 78.8 kg 79.9 kg Blood Glucose* 192 140 107 Patient Weight 08/02/16 23:59 Weight 79.9 kg - General Appearance Exam: NAD EENT: ATNC, mucous membranes moist Neck: supple Respiratory: clear (ant bilat) Cardiology: no edema, normal S1, normal S2 - Dialysis Access Dialysis Vascular Access: Venous Catheter Gastrointestinal: no tenderness, no guarding Integumentary: no rash, warm and dry Neurologic: no focal deficit Musculoskeletal: no deformities Psychiatric: mood/affect appropriate Results - Lab Results 08/02/16 03:47 Most recent lab results Calcium 9.1 mg/dL (8.6-10.8) 08/02/16 03:47 Consult Discharge Plan - Plan Referrals: Pablo Reyes DO [Primary Care Provider] - (from [facility])
[2016-08-02] MEDS ORDERED: Insulin LISPRO 300 UNITS/3 ML VIAL SQ SCH (21:00)
[2016-08-02] MEDS ORDERED: Sennosides/Docusate Sodium TABLET PO SCH (21:00)
[2016-08-03] MEDS: cloNIDine HCl 0.1 MG TABLET PO SCH ×3 (00:25→11:26)
[2016-08-03] MEDS: hydrALAZINE 25 MG TABLET PO SCH ×3 (00:28→09:03)
[2016-08-03] MEDS: Bumetanide 1 MG TABLET PO SCH ×2 (00:28→09:03)
[2016-08-03] MEDS: Ipratropium/Albuterol Neb 3 ML IH SCH ×3 (04:19→11:09)
[2016-08-03 05:10] LABS: Basophils % 0.5 %; Eosinophils # 0.3 K/mcL (0.0-0.6); Eosinophils % 4.4 %; Hematocrit 34.5 % (37.5-50.1); Hemoglobin 11.5 g/dL (12.9-16.9); Immature Granulocytes % 0.7 % (0-4); Lymphocytes # 1.2 K/mcL (0.6-4.6); Lymphocytes % 20.8 %; Mean Corpuscular HGB Conc 33.3 g/dL (31.6-35.5); Mean Corpuscular Hemoglobin 31.4 pg (28.0-33.3); Mean Corpuscular Volume 94.3 fL (83.0-100.0); Monocytes # 0.6 K/mcL (0.0-1.3); Monocytes % 10.4 %; Neutrophils # 3.7 K/mcL (1.6-8.9); Platelet Count 207 K/mcL (140-400); Red Blood Count 3.66 M/mcL (4.19-5.50); Red Cell Distribution Width 14.1 % (11.5-14.5); Segmented Neutrophils % 63.2 %
[2016-08-03 05:15] LABS: INR 1.6
[2016-08-03 05:33] LABS: Albumin/Globulin Ratio 0.8 (1.1-2.2); Bilirubin,Total 0.7 mg/dL (0.2-1.2); Calcium 8.9 mg/dL (8.6-10.8); Globulin 3.8 g/dL (2.4-3.5); Potassium 3.7 mEq/L (3.5-4.5); Total Protein 6.8 g/dL (6.0-8.3)
--- NOTE | 2016-08-03 07:00 | Electrocardiograph Report ---
[place] [id number] Test Date: 2016-08-02 Pat Name: Marino Diaz Department: 112 Room: 2N11 Gender: M Winding Inspector And Tester: RAMONA : 1940 Requested By: Rasheed Krishnamurthy Order Number: [id number] Reading MD: Gregg Tejada MD Measurements Intervals [place] Rate: 69 P: 13 HI: 174 QRS: -54 QRSD: 172 T: 123 QT: 467 QTc: 485 Interpretive Statements ELECTRONIC VENTRICULAR PACEMAKER Electronically Signed On 08-03-2016 6:59:09 EDT by Gregg Tejada MD
[2016-08-03] MEDS ORDERED: Isosorbide MONOnitrate (24 HR) 60 MG TAB.ER.24H PO SCH (09:00)
[2016-08-03] MEDS ORDERED: *HR* Warfarin 3 MG TABLET PO SCH ×2 (09:00→18:00)
[2016-08-03] MEDS: amLODIPine 5 MG TABLET PO SCH (09:03)
[2016-08-03] MEDS: Insulin LISPRO 300 UNITS/3 ML VIAL SQ SCH ×4 (09:09→11:25)
--- NOTE | 2016-08-03 09:45 | Cardiology Progress Note ---
Date of Encounter: 08/03/16 Time of Encounter: 09:44 Assessment and Plan (1) NSTEMI (non-ST elevated myocardial infarction) Current Visit: Yes Status: Acute Troponins 0.01, 0.27, 0.50. S/P LHC yesterday with successful ELOISA to LMCA. 1st diagonal and mid RCA patent, PRABHAKAR-LAD patent, SVG-R PDA occluded. Pt denies any chest pain overnight. Recommend triple therapy of ASA, Plavix and Coumadin for 1 month, then okay to stop ASA and continue Plavix and Coumadin. Recommend continuing Plavix uninterrupted x 1 year--pt verbalizes understanding. Renal function improved. ASA, Plavix, Statin, BB, Nitrates. Right femoral access site healing well. No bleeding or hematoma. Mild ecchymosis noted. Restrictions discussed. Cardiology signing off. Reconsult PRN. Follow-up as outpt in 1 week. Will coordinate appointment. (2) Atrial fibrillation Current Visit: No Status: Chronic V-Paced. Continue BB. Anticoagulated on Coumadin with dosing per pharmacy while inpt. INR 1.6 today. Qualifiers: Atrial fibrillation type: chronic Qualified Code(s): I48.2 - Chronic atrial fibrillation (3) CAD (coronary artery disease) Current Visit: No Status: Chronic Per Cardiology: S/P ELOISA to LMCA yesterday. ASA, Plavix, Statin, BB, nitrates. [facility] details as above. Okay to stop ASA after 1 month since he is on triple therapy with ASA, Plavix and Coumadin. Qualifiers: Coronary Disease-Associated Artery/Lesion type: [place] artery [place] vs. transplanted heart: [place] heart Associated angina: with unspecified angina Qualified Code(s): I25.119 - Atherosclerotic heart disease of [place] coronary artery with unspecified angina pectoris (4) Sick sinus syndrome Current Visit: No Status: Chronic Per Cardiology: Last pacer check 04/2016. Has Pacer. V paced. Discussion w patient/family: The assessment and plan as outlined above was discussed with the patient and/or family members who expressed understanding and agreement. All questions were answered. Thank you for involving us in the care of your patient. Please call with any questions. I will discuss all the above with Dr. Tejada and make changes as necessary. Subjective Principal diagnosis: NSTEMI, CAD Interval history: S/P LHC yesterday with successful ELOISA to LMCA. 1st diagonal and mid RCA patent, PRABHAKAR-LAD patent, SVG-R PDA occluded. Pt denies any chest pain overnight. Reports breathing is stable. No acute complaints. Creatinine improved s/p LHC-- was 4.04 yesterday, 2.56 today. Objective Vital Signs, Last 4 Hours Temp Pulse Resp BP Pulse Ox 08/03/16 08:13 18 100 08/03/16 07:33 97.9 F 60 12 151/53 99 Vital Signs Temp Pulse Resp BP Pulse Ox 08/03/16 09:43 60 08/03/16 08:13 18 100 08/03/16 07:33 97.9 F 60 12 151/53 99 08/03/16 04:19 16 98 08/03/16 03:50 97.8 F 62 14 147/63 100 08/03/16 00:08 97.6 F 62 16 155/55 100 08/02/16 23:45 97.5 F L 14 141/57 08/02/16 23:40 141/57 08/02/16 23:25 155/56 08/02/16 23:10 154/59 08/02/16 22:55 160/60 08/02/16 22:40 163/57 08/02/16 22:25 154/61 08/02/16 22:10 144/59 08/02/16 21:55 155/66 08/02/16 21:40 139/51 08/02/16 21:25 143/51 08/02/16 21:10 145/51 08/02/16 20:55 139/57 08/02/16 20:40 97.5 F L 14 147/53 08/02/16 18:40 97.5 F L 60 14 143/92 100 08/02/16 18:29 97.5 F L 60 14 143/92 100 08/02/16 18:02 97.3 F L 62 13 163/65 100 08/02/16 17:51 97.2 F L 61 12 159/67 100 08/02/16 17:32 97.6 F 60 12 149/56 93 08/02/16 17:29 94 08/02/16 17:15 97.3 F L 63 12 156/59 88 08/02/16 11:30 98.3 F 63 18 168/64 100 Intake and Output 08/02/16 08/03/16 08/03/16 23:59 07:59 15:59 Intake Total 600 / 600 300 / 300 Output Total 1725 / 1725 Balance -1125 / -1125 300 / 300 Intake: Oral 0 / 0 300 / 300 Intake, Rinseback and 600 / 600 Flushes Output: Urine 125 / 125 Total Dialysis Output 1600 / 1600 Other: Meal Dinner Percent of Meal Consumed 95% Weight 79.9 kg Blood Glucose* 107 106 Hemodialysis Net Fluid 1000 Removed (mL) General: Conversant, No Apparent Distress HEENT: Atraumatic, Normocephaly, Mucus Membranes Moist Neck: No JVD, Normal carotid pulses Cardiac: Other (paced) Lungs: Normal Breath Sounds, No Wheeze, Rales, Rhonchi Neuro: Alert and responsive, No focal deficits noted Abdomen: Soft, Non-Tender Skin: Other (right femoral access site healing well. No bleeding or hematoma. Mild ecchymosis noted.) Musculoskeletal: No Chest Wall Tenderness Extremities: No Clubbing, No Cyanosis, No Edema, Normal Pulses Results 08/03/16 04:46 08/03/16 04:46 Lab Results 08/02/16 08/03/16 08/03/16 10:02 04:46 04:46 WBC 5.9 Hgb 11.5 L Hct 34.5 L Plt Count 207 INR 1.6 Sodium Potassium Chloride Carbon Dioxide BUN Creatinine Glucose Calcium Total Bilirubin AST ALT Alkaline Phosphatase Troponin I 0.50 H* 08/03/16 04:46 WBC Hgb Hct Plt Count INR Sodium 136 Potassium 3.7 Chloride 96 L Carbon Dioxide 30 H BUN 25 D Creatinine 2.56 H Glucose 169 H Calcium 8.9 Total Bilirubin 0.7 AST 18 ALT 13 Alkaline Phosphatase 73 Troponin I Short CBC 08/03/16 Range/Units 04:46 WBC 5.9 (4.3-11.1) K/mcL Hgb 11.5 L (12.9-16.9) g/dL Hct 34.5 L (37.5-50.1) % Plt Count 207 (140-400) K/mcL Neutrophils # 3.7 (1.6-8.9) K/mcL BMP 08/03/16 Range/Units 04:46 Sodium 136 (136-145) mEq/L Potassium 3.7 (3.5-4.5) mEq/L Chloride 96 L (98-109) mEq/L Carbon Dioxide 30 H (19-29) mEq/L BUN 25 D (8-26) mg/dL Creatinine 2.56 H (0.72-1.25) mg/dL Glucose 169 H (70-99) mg/dL Calcium 8.9 (8.6-10.8) mg/dL Cardiac Enzymes 08/02/16 Range/Units 10:02 Troponin I 0.50 H* (0-0.03) ng/mL Liver Function 08/03/16 Range/Units 04:46 Total Bilirubin 0.7 (0.2-1.2) mg/dL AST 18 (5-34) Units/L ALT 13 (0-55) Units/L Alkaline Phosphatase 73 (38-126) Units/L Albumin 3.0 L (3.5-5.0) g/dL Active Medications Acetaminophen (Tylenol) 650 mg PO Q6HR PRN PRN Reason: Mild Pain (1-3) Stop: 02/01/17 03:09 Albuterol Sulfate (Albuterol Inhaler) 2 puff IH [id number] PRN PRN Reason: Shortness Of Breath/Wheezing Stop: 02/01/17 04:01 Albuterol/Ipratropium (Duoneb) 3 ml IH [id number] [facility] PRN Reason: Protocol Stop: 02/01/17 04:01 Last Admin: 08/03/16 08:12 Dose: 3 ml Amlodipine Besylate (Norvasc) 10 mg PO DAILY [facility] PRN Reason: Protocol Stop: 02/01/17 09:01 Last Admin: 08/03/16 09:03 Dose: 10 mg Atorvastatin Calcium (Lipitor) 80 mg PO HS [facility] Stop: 02/01/17 21:01 Last Admin: 08/03/16 00:28 Dose: 80 mg Benzonatate (Tessalon) 100 mg PO TID PRN PRN Reason: Cough Stop: 02/01/17 03:03 Bumetanide (Bumex) 1 mg PO BID [facility] Stop: 02/01/17 09:01 Last Admin: 08/03/16 09:03 Dose: 1 mg Carvedilol (Coreg) 25 mg PO BIDWM [facility] PRN Reason: Protocol Stop: 02/01/17 08:01 Last Admin: 08/03/16 09:03 Dose: 25 mg Clonidine HCl (Clonidine Hcl) 0.2 mg PO Q8H [facility] Stop: 02/01/17 03:16 Last Admin: 08/03/16 00:28 Dose: 0.2 mg Clopidogrel Bisulfate (Plavix) 75 mg PO DAILY [facility] Stop: 02/03/17 09:01 Dextrose/Water (Dextrose 50% (Syg)) 25 ml IVP AD PRN PRN Reason: Hypoglycemia Stop: 02/01/17 03:09 Glucagon (Glucagen) 1 mg IM ONCE PRN PRN Reason: Hypoglycemia Stop: 02/01/17 03:09 Glucose (Gluctose) 15 gm PO ONCE PRN PRN Reason: Hypoglycemia Stop: 02/01/17 03:09 Glucose (Gluctose) 30 gm PO ONCE PRN PRN Reason: Hypoglycemia Stop: 02/01/17 03:09 Hydralazine HCl (Hydralazine) 25 mg PO Q6H [facility] Stop: 02/01/17 03:16 Last Admin: 08/03/16 09:03 Dose: 25 mg Hydralazine HCl (Hydralazine) 20 mg IVP Q6HR PRN PRN Reason: Hypertension Stop: 02/01/17 03:12 Dextrose (Dextrose 5%) 1,000 mls @ 100 mls/hr IVC .Q10H PRN PRN Reason: HYPOGLYCEMIA Stop: 02/01/17 03:09 Sodium Chloride (0.9 % Sodium Chloride) 250 mls @ 937.5 mls/hr IVC .Q16M PRN PRN Reason: Hypotension Stop: 02/01/17 12:32 Sodium Chloride (0.9 % Sodium Chloride) 1,000 mls @ 0 mls/hr PRIME .Q0M [facility] PRN Reason: As Directed Stop: 02/01/17 12:46 Insulin Detemir (Levemir) 40 unit SQ QPM [facility] Stop: 02/01/17 18:01 Last Admin: 08/03/16 00:56 Dose: 40 unit Insulin Human Lispro (Humalog) 10 units SQ TIDWM [facility] Stop: 02/01/17 08:01 Last Admin: 08/03/16 09:09 Dose: Not Given Insulin Human Lispro (Humalog) 0 units SQ HS [facility] PRN Reason: Protocol Stop: 02/01/17 21:01 Last Admin: 08/03/16 00:25 Dose: Not Given Insulin Human Lispro (Humalog) 0 units SQ TIDAC [facility] PRN Reason: Protocol Stop: 02/01/17 11:31 Last Admin: 08/03/16 09:09 Dose: Not Given Isosorbide Mononitrate (Imdur) 120 mg PO DAILY [facility] Stop: 02/02/17 09:01 Last Admin: 08/03/16 09:03 Dose: 120 mg Levothyroxine Sodium (Synthroid) 88 mcg PO DAILY@0630 [facility] Stop: 02/02/17 06:31 Last Admin: 08/03/16 05:44 Dose: 88 mcg Morphine Sulfate (Morphine Sulfate) 2 mg IVP Q4HR PRN PRN Reason: See Comments Stop: 02/01/17 03:09 Last Admin: 08/02/16 11:28 Dose: 2 mg Naloxone HCl (Narcan) 0.4 mg IVP Q2MIN PRN PRN Reason: Opioid Reversal Stop: 02/01/17 03:09 Nitroglycerin (Nitroglycerin) 0.4 mg SL Q5MIN PRN PRN Reason: CHEST PAIN Stop: 02/01/17 03:03 Omeprazole (Prilosec) 20 mg PO DAILY [facility] Stop: 02/01/17 09:01 Last Admin: 08/03/16 09:09 Dose: 20 mg Ondansetron HCl (Zofran) 4 mg IVP Q8HR PRN PRN Reason: Nausea And Vomiting Stop: 02/01/17 03:09 Oxycodone/Acetaminophen (Percocet 5/325) 1 each PO Q4HR PRN PRN Reason: Moderate to Severe Pain (4-10) Stop: 02/01/17 04:01 Last Admin: 08/03/16 09:12 Dose: 1 each Potassium Chloride (Potassium Chloride) 10 meq PO DAILY [facility] Stop: 02/01/17 09:01 Last Admin: 08/03/16 09:03 Dose: 10 meq Senna/Docusate Sodium (Senna Plus) 2 each PO BID PRN; Protocol PRN Reason: Constipation Stop: 02/01/17 21:01 Warfarin Sodium (Coumadin Perpt) 1 each PO DAILY@1800 PRN PRN Reason: SEE COMMENTS Stop: 02/01/17 18:01 Warfarin Sodium (Coumadin) 5 mg PO MoWeFr@1800 [facility] Stop: 02/01/17 18:01 Last Admin: 08/02/16 18:10 Dose: 5 mg Warfarin Sodium (Coumadin) 3 mg PO SuTuThSa@1800 [facility] Stop: 02/02/17 18:01 - Imaging and Cardiology Cardiac cath: report reviewed - EKG Interpretation EKG results cardiology: other (24 hour tele AVG HR 61, paced) Consult Discharge Plan - Plan Additional Instructions: RISK FACTORS: STOP SMOKING: If you smoke, STOP. Smoking or tobacco use significantly increases your risk of heart disease because nicotine causes the arteries to narrow or constrict. It also causes fats to stick to the artery. Your chances of having a heart attack are greatly increased if you continue to smoke. For more information, call the education line for smoking cessation 8-292-VQXLPWF EAT A LOW FAT/CHOLESTEROL/SODIUM DIET: This diet may help reduce your chances of having a heart attack. LIFTING: Avoid lifting anything more than 10 pounds for 5-7 days Prior to straining, laughing, sneezing and/or coughing, apply manual pressure directly over insertion site. ACTIVITY: You may walk or climb stairs as tolerated You can resume sexual activity as tolerated In general, you are encouraged to engage in a minimum of 30 minutes or more of moderate intensity physical activity, such as brisk walking, daily or at least 3 -4 times weekly BATHING Do not submerge the site into water (bath tub, hot tub, swimming pool) for 1 week. This can be a source for infection into the blood stream. You may shower after 24 hours SITE CARE: After 24 hours, you may remove the dressing and leave the site open to air. Keep the site clean and dry. Clean gently and pat dry. You can expect bruising and tenderness that gradually resolve within a week or two. Return to work as instructed per your physician Resume driving as instructed per physician Keep all scheduled follow up appointments Resume medications as instructed IMPORTANT: If prescribed a Platelet Aggregation Inhibitor such as, Plavix, Brilinta or Effient: Duration of therapy is minimum one year These medications are often used in combination with Aspirin in prevention of future heart attacks Never discontinue unless consult with your [employer] STROKE (CVA) Risk factors for a stroke are: Age, cigarette smoking, diabetes, excessive alcohol consumption, family history, high blood pressure, overweight, physical inactivity, prior stroke, heart attack, diagnosis of carotid artery stenosis or other artery disease. Warning signs: Sudden numbness or weakness of the face, arm or leg; especially on one side of the body, sudden confusion, trouble speaking or understanding, sudden trouble seeing in one or both eyes, sudden trouble walking, dizziness, loss of balance or coordination, sudden severe headache with no cause. Call 911 or go to the Emergency Room. CONGESTIVE HEART FAILURE: If you have been diagnosed with Congestive Heart Failure (CHF) and your symptoms return, make an appointment with your physician Weigh yourself daily. Notify your physician if you have a weight gain of two or more pounds in one day or five or more pounds in one week. If you experience any difficulty breathing, please call 911 BLEEDING: Although the risk of bleeding is minimal, it can happen. If you have any bleeding from the site, apply firm pressure above the puncture site for 10-15 minutes. If the bleeding does not stop, continue manual pressure and call 911 Contact your physician if: You develop a fever greater than 101 degrees Fahrenheit Your site becomes reddened or has any drainage You have an increase in pain or burning at the site or if a large knot forms at the site. If you experience chest pain, shortness of breath, dizziness, or extreme tiredness, stop the activity and rest. Please notify your physicians office if you experience any of these symptoms and they are not relieved by rest please call 911! Referrals: Pablo Reyes DO [Primary Care Provider] - (from [facility])
[2016-08-03] MEDS ORDERED: Aspirin 81 MG TAB.CHEW PO SCH (10:00)
[2016-08-03 11:04] VITALS: BP 149/53
--- NOTE | 2016-08-03 12:44 | Invasive Diagnostic Lab ---
Name: Marino Diaz Date of Study: 08/02/2016 Date: 1940 Ht: 168.0 cm /66.1 in Medical Record#: [id number] Age: 76 Wt: 78. kg / 171.96 lb Account/Order#: [id number] Gender: Male BSA: 1.88 Order #: [id number] Fluoro Dose: 816 mGy BMI: 27.64 Procedure Physician: Gregg Tejada MD, [facility] Referring MD: Referring MD: Procedures Performed: LEFT HEART CATH W/ GRAFTS Stent w/ PTCA Single Major Vessel Indications: Non-Stemi Impressions: There is severe one vessel coronary artery disease. The left ventricle is normal and has normal contractility EF 65% Stent placed from a prior procedure in the 1st Diagonal and Mid RCA is patent. Patient had successful PTCA/Drug-Eluting Stent placement in the Left Main. patent bypasses (PRABHAKAR LAD) Recommendations: Optimal medical therapy of patient's disease. Aggressive risk factor modification. History/Risk Factors: Diabetes Hypertension Dyslipidemia CHF Cerebrovascular disease Chronic Lung Disease Prior SD Previous PCI Previous CABG Procedure Access obtained in the right Femoral artery by percutaneous puncture Patient had successful PTCA/Drug-Eluting Stent placement in the Left Main. Complications: None, None Contrast: Isovue 105ml Closure Device: MynxGrip Hemodynamics: Pressures Site Systolic/ A Wave Diastolic/ V Wave End Diastolic/ Mean HR AO 122 53 83 64 LV 176 9 26 62 LV 167 18 56 70 AO 167 56 92 60 AO 147 53 85 62 AO 137 53 82 63 AO 111 30 59 63 AO 171 55 96 65 LV Ventriculography Ejection Method: LV Gram Ejection Fraction: 65% Wall Motion: VÁZQUEZ Anterobasal Normal Anterolateral Normal Apical: Normal Inferoapical Normal Inferobasal Normal Coronary Dominance: right Lesion Findings/Interventions * Left Main Coronary Artery There is a 12 mm long, 90% stenosis in the LMCA. The lesion has a CHATA flow of 3. An intervention was performed on the LMCA with a final stenosis of 0%. There were no lesion complications. The final CHATA flow was 3. * Left Anterior Descending There is a 100% stenosis in the Proximal LAD. Patent stents in the diagonal. * Circumflex The Circumflex is angiographically free of significant disease. * Right Coronary Artery The RCA has patent stents. No significant disease in it or the R PDA. Additional Findings: Grafts * The left internal mammary graft to the Mid LAD is patent. CHATA flow is 3. It does not backfill the diagonal. * The saphenous vein graft to the Right PDA is occluded. Interventional Device(s) Vessel Segment Type Name Diameter (mm) Length (mm) LMCA Balloon Emerge Monorail 2 8 LMCA Drug Eluting Stent Synergy 2.25 12 LMCA Balloon NC Trek Rx 2.25 12 Updated by Jazmin Traore, RT (R) on 08/02/2016 5:04:59 PM Gregg Tejada MD, FACC electronically signed on 08/03/2016 12:37:24 PM with status of Final
--- NOTE | 2016-08-03 13:25 | Discharge Summary ---
Date of Encounter: 08/03/16 Time of Encounter: 13:23 - Discharge Diagnosis (1) Chest pain Priority: Primary Status: Acute Qualifiers: Chest pain type: precordial pain Qualified Code(s): R07.2 - Precordial pain (2) Hypertensive urgency Priority: Primary Status: Acute (3) NSTEMI (non-ST elevated myocardial infarction) Priority: Primary Status: Acute (4) Diabetes mellitus Priority: Secondary Status: Chronic Qualifiers: Diabetes mellitus type: type 2 Diabetes mellitus complication status: with kidney complications Diabetes mellitus complication detail: with chronic kidney disease Diabetes mellitus intermediate insulin use: with intermediate use Chronic kidney disease stage: on chronic dialysis Qualified Code(s): E11.22 - Type 2 diabetes mellitus with diabetic chronic kidney disease; N18.6 - End stage renal disease; 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 transplanted heart: [place] heart Associated angina: with unspecified angina Qualified Code(s): I25.709 - Atherosclerosis of coronary artery bypass graft(s) , unspecified, with unspecified angina pectoris (6) CHF (congestive heart failure) Priority: Secondary Status: Chronic Qualifiers: Congestive heart failure type: diastolic Congestive heart failure chronicity: chronic Qualified Code(s): I50.32 - Chronic diastolic (congestive ) heart failure (7) Atrial fibrillation Priority: Secondary Status: Chronic Qualifiers: Atrial fibrillation type: chronic Qualified Code(s): I48.2 - Chronic atrial fibrillation (8) End stage renal disease Priority: Secondary Status: Chronic - Discharge Medications Prescriptions: Aspirin 81 mg PO DAILY #30 tab.chew Atorvastatin [Lipitor] 80 mg PO HS #30 tablet Clopidogrel [Plavix] 75 mg PO DAILY #30 tablet Isosorbide MONOnitrate (24 HR) [Imdur] 120 mg PO DAILY #30 tab.er.24h Home Medications: Levothyroxine [Synthroid] 88 mcg PO DAILY 11/17/14 [History] Nitroglycerin [Nitrostat] 0.4 mg SL PRN PRN 11/17/14 [History] Polyethylene Glycol 3350 [MiraLAX] 17 gm PO DAILY PRN 11/17/14 [History] Ranolazine [Ranexa] 500 mg PO BID #60 tab.er.12h 11/21/14 [Rx] Fludrocortisone Acetate [Florinef] 0.1 mg PO DAILY #30 tablet 12/04/14 [Rx] Albuterol Sulfate [Ventolin Hfa] 2 puff IH Q6H PRN 06/28/15 [History] Benzonatate [Tessalon] 100 mg PO TID PRN 06/28/15 [History] Cholecalciferol (Vitamin D3) [Vitamin D3] 5,000 unit PO DAILY 06/28/15 [History] GuaiFENesin ER [Mucinex] 1,200 mg PO BID 06/28/15 [History] Ipratropium/Albuterol Neb [Duoneb] 3 ml IH Q4HR PRN 06/28/15 [History] Promethazine [Phenergan] 25 mg PO Q6HR PRN 06/28/15 [History] CloNIDine HCl [Clonidine HCl] 0.2 mg PO Q8H #0 06/30/15 [Rx] Potassium Chloride 10 meq PO DAILY #30 tab.er.prt 06/30/15 [Rx] Acetaminophen [Tylenol] 650 mg PO Q6HR PRN 02/22/16 [History] Bumetanide [Bumex] 1 mg PO BID 02/22/16 [History] Insulin Glargine,Hum.rec.anlog [Lantus Solostar] 40 unit SQ QPM 02/22/16 [ History] Insulin LISPRO [Humalog] 10 unit SQ TIDWM 02/22/16 [History] Pantoprazole Sodium [Protonix] 40 mg PO DAILY 02/22/16 [History] Warfarin [Coumadin] 3 mg PO SUTUTHSA 02/22/16 [History] Amlodipine [Norvasc] 5 mg PO DAILY 30 Days 02/27/16 [Rx] Carvedilol [Coreg] 25 mg PO BIDWM 30 Days 02/27/16 [Rx] Docusate Sodium [Colace] 200 mg PO BID 03/02/16 [History] Sennosides/Docusate Sodium [Senna Plus] 2 each PO BID tablet 03/12/16 [Rx] Meclizine [Antivert] 25 - 50 mg PO QID #30 tablet 06/25/16 [Rx] Oxycodone HCl/Acetaminophen [Percocet 5-325 mg Tablet] 1 tab PO Q4HR PRN [History] Warfarin [Coumadin] 5 mg PO QMWF 08/02/16 [History] Aspirin 81 mg PO DAILY #30 tab.chew 08/03/16 [Rx] Atorvastatin [Lipitor] 80 mg PO HS #30 tablet 08/03/16 [Rx] Clopidogrel [Plavix] 75 mg PO DAILY #30 tablet 08/03/16 [Rx] HydrALAZINE 25 mg PO Q6H #30 08/03/16 [Rx] Isosorbide MONOnitrate (24 HR) [Imdur] 120 mg PO DAILY #30 tab.er.24h 08/03/16 [ Rx] Allergies/Adverse Reactions: Allergies adhesive tape Allergy (Verified 08/01/16 23:45) Rash Procedures/tests Complete & Pending: Procedures Performed prior 72 hours Category Date Time Status CL Cardiac Catheterization [CL] Routine Medical Registrar 08/02/16 14:59 Completed ECG 12 lead ECG [ECG] Routine Y 08/02/16 11:41 Completed Date of admission: 08/03/16 08:37 Primary care physician: Pablo Reyes DO Consults: 08/02/16 03:22 Consult to Nephrology [CONS] Routine Consulting Provider: Blane Douglas Reason for Consult: HD Call Completed: No 08/02/16 09:54 Consult to Cardiology [CONS] Routine Comment: Consulting Provider: Cardiology Milly Reason for Consult: chest pain, NSTEMI Call Completed: Yes 08/02/16 12:45 Consult to Dialysis [CONS] ONCE 08/02/16 14:12 Consult to Cardiac Rehabilitation-Phase1 [CONS] Routine Comment: Reason for Consult: cad Call Completed: No Discharging clinician: Brea Leal Anticipated date of discharge: 08/03/16 - Patient Status Disposition: Home, Self-Care Condition: Fair Functional capacity at discharge: uses cane/walker Overall status at discharge: patient is progressing back to baseline - Discharge Instructions Instructions: Warfarin (By mouth), Atrial Fibrillation (DC), Chest Pain (DC), Left Heart Catheterization (DC) Follow Up With: Pablo Reyes DO [Primary Care Provider] - 08/11/16 8:30 am Jonn Soto DO [Partnered Physician] - 08/12/16 1:45 pm Additional Instructions: RISK FACTORS: STOP SMOKING: If you smoke, STOP. Smoking or tobacco use significantly increases your risk of heart disease because nicotine causes the arteries to narrow or constrict. It also causes fats to stick to the artery. Your chances of having a heart attack are greatly increased if you continue to smoke. For more information, call the education line for smoking cessation 6-517-JSHMNSJ EAT A LOW FAT/CHOLESTEROL/SODIUM DIET: This diet may help reduce your chances of having a heart attack. LIFTING: Avoid lifting anything more than 10 pounds for 5-7 days Prior to straining, laughing, sneezing and/or coughing, apply manual pressure directly over insertion site. ACTIVITY: You may walk or climb stairs as tolerated You can resume sexual activity as tolerated In general, you are encouraged to engage in a minimum of 30 minutes or more of moderate intensity physical activity, such as brisk walking, daily or at least 3 -4 times weekly BATHING Do not submerge the site into water (bath tub, hot tub, swimming pool) for 1 week. This can be a source for infection into the blood stream. You may shower after 24 hours SITE CARE: After 24 hours, you may remove the dressing and leave the site open to air. Keep the site clean and dry. Clean gently and pat dry. You can expect bruising and tenderness that gradually resolve within a week or two. Return to work as instructed per your physician Resume driving as instructed per physician Keep all scheduled follow up appointments Resume medications as instructed IMPORTANT: If prescribed a Platelet Aggregation Inhibitor such as, Plavix, Brilinta or Effient: Duration of therapy is minimum one year These medications are often used in combination with Aspirin in prevention of future heart attacks Never discontinue unless consult with your Chiller Operator STROKE (CVA) Risk factors for a stroke are: Age, cigarette smoking, diabetes, excessive alcohol consumption, family history, high blood pressure, overweight, physical inactivity, prior stroke, heart attack, diagnosis of carotid artery stenosis or other artery disease. Warning signs: Sudden numbness or weakness of the face, arm or leg; especially on one side of the body, sudden confusion, trouble speaking or understanding, sudden trouble seeing in one or both eyes, sudden trouble walking, dizziness, loss of balance or coordination, sudden severe headache with no cause. Call 911 or go to the Emergency Room. CONGESTIVE HEART FAILURE: If you have been diagnosed with Congestive Heart Failure (CHF) and your symptoms return, make an appointment with your physician Weigh yourself daily. Notify your physician if you have a weight gain of two or more pounds in one day or five or more pounds in one week. If you experience any difficulty breathing, please call 911 BLEEDING: Although the risk of bleeding is minimal, it can happen. If you have any bleeding from the site, apply firm pressure above the puncture site for 10-15 minutes. If the bleeding does not stop, continue manual pressure and call 911 Contact your physician if: You develop a fever greater than 101 degrees Fahrenheit Your site becomes reddened or has any drainage You have an increase in pain or burning at the site or if a large knot forms at the site. If you experience chest pain, shortness of breath, dizziness, or extreme tiredness, stop the activity and rest. Please notify your physicians office if you experience any of these symptoms and they are not relieved by rest please call 911! - Diet and Activity Activity: ambulate only with your walker, resume usual activities as tolerated Diet: diabetic diet, low fat, low cholesterol, low salt diet (renal diet) Hospital course: Mr. Diaz is a 76 year old male with the above medical problems, who was admitted with retrosternal chest pain. Patient was noted to have slightly elevated troponin and he was started on non-ST elevation ME protocol with IV heparin drip, aspirin, Plavix, beta huseyin and statin. Cardiology was consulted and patient underwent left heart catheterization due to multiple risk factors including CAD with history of CABG, underlying diabetes and end-stage renal disease. He received drug-eluting stent to left MCA. Nephrology has been consulted during this hospitalization and patient received his regular hemodialysis sessions. He is currently doing well postprocedure and has been cleared by cardiology for discharge, with recommendations to continue uninterrupted dual antiplatelet therapy for at least 1 month, after which aspirin can be held and Plavix and Coumadin should be continued. Patient is now medically stable for discharge with close outpatient cardiology follow-up. - Time Spent with Patient Total time spent providing and/or coordinating discharge services: Greater than 30 minutes (50 min) - Constitutional Vitals: Temp Pulse Resp BP Pulse Ox 98.1 F 63 14 149/53 96 08/03/16 11:00 08/03/16 11:00 08/03/16 11:09 08/03/16 11:00 08/03/16 11:09 General appearance: Present: A&O X 3, answers questions appropriately - Respiratory Respiratory exam: Present: CTAB. Absent: accessory muscle use, rales, rhonchi, wheezes - Cardiovascular Cardiovascular exam: Present: irregular rhythm, +S1, +S2, systolic murmur. Absent: diastolic murmur, gallop, rubs
== END 2016-08-03 15:02 | DRG 246 ==
LOC: 2ANU → SUATTDRO 02:40 → 2NNU 17:17
PROVIDERS: ADMIT Internal Medicine; ATTEND Internal Medicine

== ENCOUNTER 2016-09-28 18:28 | Observation (INO) ==
--- NOTE | 2016-09-28 19:09 | Emergency Department Note ---
Disposition Clinical Impression: Shortness of breath, Elevated troponin Diastolic CHF Qualifiers: Congestive heart failure chronicity: acute on chronic Qualified Code(s): I50.33 - Acute on chronic diastolic (congestive) heart failure Disposition: Admitted As Inpatient Condition: Fair Referrals: NO,PCP [Primary Care Provider] - Forms: Work/School Release, ED Satisfaction Letter Time of Disposition: 23:13 General Adult HPI - General Chief complaint: ED General Medical Stated complaint: "Bleeding from Fistula" Time Seen by Provider: 09/28/16 18:38 Source: patient, EMS Limitations: no limitations Nursing Notes Reviewed: Yes Vital Signs Reviewed: Yes - History of Present Illness HPI Narrative: 76 year old male with PMx of CAD, hypothyroidism, CHF, Afib, Hx of CABG, ESRD on dialysis tuesday and tuesday (tuesday and Tuesday, sees Dr. Landeros), COPD (on oxygen at night). Patient lives at [facility]. He woke up this morning and noticed bleeding from the fistula in his right arm. Patient states that it bled for about half an hour, and the bleeding stopped when the nurses changed the dressing. Patient does have history of CABG and is on aspirin , plavix, and is on Coumadin. He also reports having shortness of breath that started yesterday, and he was breathiing really hard. He reports a non productive cough. He denies chest pain, admits to nausea, denies vomiting, denies diarrhea, denies fever and chills. He denies hematochezia and hematuria. Patient denies any further problems today. Onset (ago): hour(s) Location: right, upper extremity Pain Scale: 0 - Related Data Home Medications Medication Instructions Recorded Confirmed Levothyroxine [Synthroid] 88 mcg PO DAILY 11/17/14 08/02/16 Nitroglycerin [Nitrostat] 0.4 mg SL PRN PRN 11/17/14 08/02/16 Polyethylene Glycol 3350 [MiraLAX] 17 gm PO DAILY PRN 11/17/14 08/02/16 Albuterol Sulfate [Ventolin Hfa] 2 puff IH Q6H PRN 06/28/15 08/02/16 Benzonatate [Tessalon] 100 mg PO TID PRN 06/28/15 08/02/16 Cholecalciferol (Vitamin D3) 5,000 unit PO DAILY 06/28/15 08/02/16 [Vitamin D3] GuaiFENesin ER [Mucinex] 1,200 mg PO BID 06/28/15 08/02/16 Ipratropium/Albuterol Neb [Duoneb] 3 ml IH Q4HR PRN 06/28/15 08/02/16 Promethazine [Phenergan] 25 mg PO Q6HR PRN 06/28/15 08/02/16 Acetaminophen [Tylenol] 650 mg PO Q6HR PRN 02/22/16 08/02/16 Bumetanide [Bumex] 1 mg PO BID 02/22/16 08/02/16 Insulin Glargine,Hum.rec.anlog 40 unit SQ QPM 02/22/16 08/02/16 [Lantus Solostar] Insulin LISPRO [Humalog] 10 unit SQ TIDWM 02/22/16 08/02/16 Pantoprazole Sodium [Protonix] 40 mg PO DAILY 02/22/16 08/02/16 Warfarin [Coumadin] 3 mg PO SUTUTHSA 02/22/16 08/02/16 Docusate Sodium [Colace] 200 mg PO BID 03/02/16 08/02/16 Oxycodone HCl/Acetaminophen 1 tab PO Q4HR PRN 06/25/16 08/02/16 [Percocet 5-325 mg Tablet] Warfarin [Coumadin] 5 mg PO QMWF 08/02/16 08/02/16 Previous Rx's Medication Instructions Recorded Ranolazine [Ranexa] 500 mg PO BID #60 tab.er.12h 11/21/14 Fludrocortisone Acetate [Florinef] 0.1 mg PO DAILY #30 tablet 12/04/14 Potassium Chloride 10 meq PO DAILY #30 tab.er.prt 06/30/15 cloNIDine HCl [Clonidine HCl] 0.2 mg PO Q8H #0 06/30/15 Carvedilol [Coreg] 25 mg PO BIDWM 30 Days 02/27/16 amLODIPine [Norvasc] 5 mg PO DAILY 30 Days 02/27/16 Sennosides/Docusate Sodium [Senna 2 each PO BID tablet 03/12/16 Plus] Meclizine [Antivert] 25 - 50 mg PO QID #30 tablet 06/25/16 Aspirin 81 mg PO DAILY #30 tab.chew 08/03/16 Atorvastatin [Lipitor] 80 mg PO HS #30 tablet 08/03/16 Clopidogrel [Plavix] 75 mg PO DAILY #30 tablet 08/03/16 Isosorbide MONOnitrate (24 HR) 120 mg PO DAILY #30 tab.er.24h 08/03/16 [Imdur] hydrALAZINE [HydrALAZINE] 25 mg PO Q6H #30 08/03/16 Allergies Allergy/AdvReac Type Severity Reaction Status Date / Time adhesive tape Allergy Rash Verified 08/01/16 23:45 All systems ED: reviewed and negative except as stated. Past Medical History - Past Medical History Medical history: Reports: arthritis, atrial fibrillation, cardiomyopathy, CHF, COPD, coronary artery disease, CVA, DVT, diabetes, GERD, hyperlipidemia, hypertension, myocardial infarction, osteoporosis, renal disease, thyroid disease, TIA, other Surgical history: Reports: angioplasty/stent, appendectomy, cholecystectomy, coronary bypass (CABG), orthopedic, other, other (Cardiac catheterization as stated above, dialysis catheter), pacemaker Psychiatric history: Reports: no psych history - Social History Smoking Status: Never smoker Smokeless Tobacco Status: No Alcohol use: Reports: none Drug use: Reports: none Physical Exam - General Limitations: other (poor historian) General appearance: alert, in no apparent distress - Head Head exam: atraumatic, normocephalic - Eye Eye exam: Present: normal appearance - Neck Neck exam: Present: normal inspection, trachea midline - Chest Chest inspection: Present: normal inspection - Respiratory Respiratory exam: Present: other (bibasilar crackles present. ) - Cardiovascular Cardiovascular exam: Present: regular rate, normal rhythm, +S1, +S2 - Abdominal Exam Abdominal exam: Present: soft, Non-Tender, distention, normal bowel sounds, other (abdomen firm) - Extremities Exam Extremities exam: Present: other (right arm fistula has dried blood, but no signs of active bleeding. ) - Back Exam Back exam: Present: normal inspection - Neurological Exam Neurological exam: Present: alert, oriented X3 - Psychiatric Psychiatric exam: Present: normal affect - Skin Skin exam: Present: warm, dry, intact Course Vital Signs Temperature 98.3 F 09/28/16 18:32 Pulse Rate 63 09/28/16 18:32 Respiratory Rate 16 09/28/16 18:32 Blood Pressure 157/58 09/28/16 18:32 O2 Sat by Pulse Oximetry 98 09/28/16 18:32 Temperature 98.3 F 09/28/16 18:32 Pulse Rate 62 09/28/16 22:06 Respiratory Rate 20 09/28/16 22:06 Blood Pressure 149/67 09/28/16 22:06 O2 Sat by Pulse Oximetry 100 09/28/16 22:06 Oxygen Delivery Oxygen Delivery Nasal Cannula Medical Decision Making - MDM Narrative Medical decision making narrative: CBC showd Hg slightly lower than normal, coags unremarkable. Cr was 3.5, which is about normal for patient. BNP was 714, troponin was .04 with paced rhythm. CXR showed evidence of pleural effusions. because of patient's dyspnea, mildly elevated troponin with paced rhythm, and shortness of breath, he is high risk and will be admitted to observation. Patient is on Coumadin and has INR within normal limits. He will be monitored for further bleeding. SPoke with hospitalist Dr. Painting, who accepted the patient. - Medical Records Medical records reviewed: Yes I reviewed the patient's medical records. - Lab Data Lab results reviewed: Yes I reviewed the patient's lab results. Result diagrams: 09/28/16 19:10 09/28/16 19:10 Lab Results 09/28/16 09/28/16 09/28/16 Range/Units 19:10 19:10 19:10 WBC 5.7 (4.3-11.1) K/mcL RBC 3.10 L (4.19-5.50) M/mcL Hgb 9.8 L (12.9-16.9) g/dL Hct 30.0 L (37.5-50.1) % MCV 96.8 (83.0-100.0) fL MCH 31.6 (28.0-33.3) pg MCHC 32.7 (31.6-35.5) g/dL RDW 13.9 (11.5-14.5) % Plt Count 219 (140-400) K/mcL MPV 10.5 (9.4-12.4) fL Immature Gran % 0.7 (0-4) % Seg Neutrophils % 65.4 % Lymphocytes % 20.2 % Monocytes % 10.7 % Eosinophils % 2.5 % Basophils % 0.5 % Neutrophils # 3.7 (1.6-8.9) K/mcL Lymphocytes # 1.2 (0.6-4.6) K/mcL Monocytes # 0.6 (0.0-1.3) K/mcL Eosinophils # 0.1 (0.0-0.6) K/mcL Basophils # 0.0 (0.0-0.2) K/mcL PT 20.7 H (9.4-12.1) Seconds INR 1.9 APTT 37.3 H (26.0-36.0) Seconds Sodium 137 (136-145) mEq/L Potassium 4.1 (3.5-4.5) mEq/L Chloride 97 L (98-109) mEq/L Carbon Dioxide 30 H (19-29) mEq/L BUN 22 D (8-26) mg/dL Creatinine 3.50 H (0.72-1.25) mg/dL Est GFR ( Amer) 21 L (> 60) Est GFR (Non-Af Amer) 17 L (> 60) BUN/Creatinine Ratio 6 (6-26) Glucose 152 H (70-99) mg/dL Calculated Osmolality 290 (280-300) Calcium 8.2 L (8.6-10.8) mg/dL Troponin I (0-0.03) ng/mL B-Natriuretic Peptide (0-100) pg/mL 09/28/16 09/28/16 Range/Units 19:10 19:10 WBC (4.3-11.1) K/mcL RBC (4.19-5.50) M/mcL Hgb (12.9-16.9) g/dL Hct (37.5-50.1) % MCV (83.0-100.0) fL MCH (28.0-33.3) pg MCHC (31.6-35.5) g/dL RDW (11.5-14.5) % Plt Count (140-400) K/mcL MPV (9.4-12.4) fL Immature Gran % (0-4) % Seg Neutrophils % % Lymphocytes % % Monocytes % % Eosinophils % % Basophils % % Neutrophils # (1.6-8.9) K/mcL Lymphocytes # (0.6-4.6) K/mcL Monocytes # (0.0-1.3) K/mcL Eosinophils # (0.0-0.6) K/mcL Basophils # (0.0-0.2) K/mcL PT (9.4-12.1) Seconds INR APTT (26.0-36.0) Seconds Sodium (136-145) mEq/L Potassium (3.5-4.5) mEq/L Chloride (98-109) mEq/L Carbon Dioxide (19-29) mEq/L BUN (8-26) mg/dL Creatinine (0.72-1.25) mg/dL Est GFR ( Amer) (> 60) Est GFR (Non-Af Amer) (> 60) BUN/Creatinine Ratio (6-26) Glucose (70-99) mg/dL Calculated Osmolality (280-300) Calcium (8.6-10.8) mg/dL Troponin I 0.04 H* (0-0.03) ng/mL B-Natriuretic Peptide 714 H (0-100) pg/mL - Radiology Data Radiology results reviewed: Yes I reviewed the patient's radiology results. - EKG Data EKG #1 EKG results narrative: paced rhythm, Ventricular rate 62, MO interval 169, QRS duration 184, Qt/QTc: 486/492, P-R-T axes: 5 -54 120
--- NOTE | 2016-09-28 19:11 | Emergency Department Note ---
START Narrative - START START: 76-year-old male reports from home at the advice of his home health nurse. There was concern for dialysis fistula bleeding. Dressing was applied and the bleeding stopped. The patient had dialysis yesterday. The patient gives a clear history of shortness of breath which began yesterday. He has no personal history of CHF, he describes worsening shortness of breath when lying flat. The patient has had no trauma or chest pain. No abdominal pain vomiting or diarrhea. There is no history of coughing up blood leg swelling or pain or fever. There is no history of coldness blueness or numbness or weakness the arms or legs. There is no history of bloody stool or bleeding from any other site. Physical examination: Age-appropriate male laying supine nontoxic appearance alert oriented and answered questions properly is not to be ill or in pain. Cardiovascular S1 and S2 audible. Extremities warm and well perfused without cyanosis no JVD Lungs decreased breath sounds with some crackles. Added soft nontender nondistended or rebound rigidity or guarding Neurologic muscle strength and sensation general preserve cranial nerves II through XII grossly intact Dialysis fistula site reveals multiple Steri-Strips with no active bleeding. Extremity is warm and well perfused without cyanosis swelling. Exposed skin warm and dry without petechial purpura. EKG paced rhythm noted. INR 1.9 Chronic anemia noted, elevated troponin and elevated BNP [place]. Chest x-ray appears to have blunting of the costovertebral angles on lateral view. Read as negative per radiology. Impression: Dyspnea Endstage renal failure Chronic anemia Elevated troponin History of CAD Pacemaker in situ Elevated BNP [place] elderly state Bleeding dialysis fistula Coumadin therapy COPD Hypoxemia The patient is elderly and complaining of dyspnea, he is slightly hypoxemic with an O2 sat of 93% on room air, O2 was applied which brought his sats up into the high 90s, he does have an element of COPD, not wear oxygen continuously , he has an elevated BNP and troponin which may be secondary to poor renal filtration but could also be from coronary disease and/or acute CHF. The patient has a paced rhythm making it difficult to interpret for ischemia. The patient states he has been dyspneic since yesterday. He usually does not have dyspnea. We called the patient's nursing facility and they reported that his main concern was bleeding from the fistula site. The fistula site appears to be hemostased at this time. There is no evidence of bleeding otherwise. He appears to have chronic anemia. Based on the patient's elderly state, and multiple comorbidities for acute cardiac and lung disease, with abnormal testing , and complaints of dyspnea, I thought it would be appropriate to observe the patient. He was given aspirin. He did not describe chest pain. The patient prefers to stay in the hospital he is not necessarily comfortable going back to the facility based on his concerns for shortness of breath when laying flat, he states this is highly unusual for him. The patient states he did not obtain relief after dialysis yesterday. I reviewed the case with the hospitalist on- call who has accepted patient for observation. Currently stable. I evaluated the patient with the resident and agree with her findings assessment and plan. I spent direct [id number] time with the patient.
[2016-09-28 19:20] LABS: Basophils % 0.5 %; Eosinophils # 0.1 K/mcL (0.0-0.6); Eosinophils % 2.5 %; Hemoglobin 9.8 g/dL (12.9-16.9); Immature Granulocytes % 0.7 % (0-4); Lymphocytes # 1.2 K/mcL (0.6-4.6); Lymphocytes % 20.2 %; Mean Corpuscular HGB Conc 32.7 g/dL (31.6-35.5); Mean Corpuscular Hemoglobin 31.6 pg (28.0-33.3); Mean Corpuscular Volume 96.8 fL (83.0-100.0); Mean Platelet Volume 10.5 fL (9.4-12.4); Monocytes # 0.6 K/mcL (0.0-1.3); Monocytes % 10.7 %; Neutrophils # 3.7 K/mcL (1.6-8.9); Platelet Count 219 K/mcL (140-400); Red Cell Distribution Width 13.9 % (11.5-14.5); Segmented Neutrophils % 65.4 %
[2016-09-28 19:32] LABS: Calcium 8.2 mg/dL (8.6-10.8); Potassium 4.1 mEq/L (3.5-4.5)
[2016-09-28 20:41] LABS: INR 1.9; Prothrombin Time 20.7 Seconds (9.4-12.1)
[2016-09-28 20:43] LABS: Activated Partial Thrombo Time 37.3 Seconds (26.0-36.0)
[2016-09-28] MEDS ORDERED: Aspirin 325 MG TABLET PO ONE (21:56)
[2016-09-29] MEDS ORDERED: Nitroglycerin 0.4 MG TAB.SUBL SL PRN ×2 (01:34)
[2016-09-29] MEDS ORDERED: Acetaminophen 325 MG TABLET PO PRN ×2 (01:34→09:11)
[2016-09-29] MEDS ORDERED: *HR* OxyCODONE Immed Rel 5 MG TABLET PO PRN (01:38)
[2016-09-29] MEDS ORDERED: *HR* Dextrose 50 % in Water (Syg) 50 ML SYRINGE IVP PRN (01:38)
[2016-09-29] MEDS ORDERED: *HR* Morphine 2 MG/ML SYRINGE IVP PRN (01:38)
[2016-09-29] MEDS ORDERED: Naloxone 0.4 MG/ML INJ IVP PRN (01:38)
[2016-09-29] MEDS ORDERED: Ondansetron 4 MG/2 ML VIAL IVP PRN (01:38)
[2016-09-29] MEDS ORDERED: Dextrose Gel 15 GM PO PRN ×2 (01:38)
[2016-09-29] MEDS ORDERED: D5% in Water 1,000 ML IVC PRN (01:38)
--- NOTE | 2016-09-29 01:47 | Internal Med History&Physical ---
Date of Encounter: 09/29/16 Time of Encounter: 01:45 Assessment and Plan (1) Hemorrhage of arteriovenous fistula Current visit: Yes Status: Acute Right upper extremity AV fistula hemorrhage, with acute blood loss anemia Currently controlled May hold aspirin and Plavix if bleeding recurred, consider reversing Coumadin if bleeding becomes uncontrollable Monitor CBC and consider transfusion Omeprazole for GI prophylaxis and sequential compression devices for DVT prophylaxis. Patient will be admitted for observation. She is a DNR CC arrest DNI. Time spent on this admission 40 minutes Qualifiers: Encounter type: initial encounter Qualified Code(s): T82.838A - Hemorrhage due to vascular prosthetic devices, implants and grafts, initial encounter (2) Chest pain Current visit: Yes Status: Acute Unclear etiology with history of CAD status post CABG and stents Follow troponins, continue telemetry, continue aspirin, Plavix Continue Ranexa and Imdur Qualifiers: Chest pain type: precordial pain Qualified Code(s): R07.2 - Precordial pain (3) Diastolic CHF Current visit: Yes Status: Acute Mild acute diastolic CHF exacerbation Continue Bumex, strict I's and O's and daily weight Qualifiers: Congestive heart failure chronicity: acute Qualified Code(s): I50.31 - Acute diastolic (congestive) heart failure (4) Elevated troponin Current visit: Yes Status: Acute Chronically elevated (5) Accelerated hypertension Current visit: No Status: Acute Yudith in aVF needed (6) Atrial fibrillation with slow ventricular response Current visit: No Status: Acute (7) End stage renal disease Current visit: No Status: Acute Continue dialyses (8) Sick sinus syndrome Current visit: No Status: Chronic Internal Medicine - H&P: HPI Chief complaint: Bleeding AV fistula Admitted From: Emergency Dept History of present illness: Mr. Diaz is a 76 year old male with a past medical history of atrial fibrillation on Coumadin, CAD status post stents and CABG on aspirin and Plavix , end-stage renal disease on hemodialysis, diastolic CHF who came to the emergency room complaining of bleeding on his AV fistula. The bleeding started at his assisted living facility where his right upper extremity AV fistula bled for about an hour and stopped with the assistance of the nursing staff. Also patient is complaining of some chest pain that started yesterday , described as discomfort 6 out of 10 in intensity with no radiation or modifying factors. Blood pressure is 157/58. His hemoglobin is 9.8 INR 1.9 troponin 0.04, EKG does not show any acute ischemic change, BNP 714 glucose 152. He has been short of breath since yesterday, he still makes urine and is on Bumex. 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, chronically elevated troponins , hypothyroidism) Psychiatric history: no psych history - Past Surgical History Surgical History: angioplasty/stent, appendectomy, cholecystectomy, coronary bypass (CABG), orthopedic, other, other, pacemaker - Social History Smoking Status: Never smoker Smokeless Tobacco Status: No Alcohol use: none Drug use: none - Family History Sister Living Status: Still Living Hx Family Cardiac Disorders: No Hx Family Respiratory Disorders: No Hx Family Cancer: No Hx Family GI Disorders: No Hx Family Endocrine Disorder: No Hx Family Neuromuscular Disorders: No Hx Family Neurologic Disorders: Yes Hx Family HEENT Disorders: No Hx Family Autoimmune Disorders: No Father Living Status: Hx Family Cardiac Disorders: No Hx Family Respiratory Disorders: No Hx Family Cancer: Yes Hx Family GI Disorders: No Hx Family Endocrine Disorder: No Hx Family Neuromuscular Disorders: No Hx Family Neurologic Disorders: No Hx Family HEENT Disorders: No Hx Family Autoimmune Disorders: No Mother Living Status: Hx Family Cardiac Disorders: No Hx Family Respiratory Disorders: No Hx Family Cancer: Yes Hx Family GI Disorders: No Hx Family Endocrine Disorder: No Hx Family Neuromuscular Disorders: No Hx Family Neurologic Disorders: No Hx Family HEENT Disorders: No Hx Family Autoimmune Disorders: No - Additional Family History Additional family history: Father with myocardial infarction Internal Medicine - H&P: Meds Levothyroxine [Synthroid] 88 mcg PO DAILY 11/17/14 [History] Nitroglycerin [Nitrostat] 0.4 mg SL PRN PRN 11/17/14 [History] Polyethylene Glycol 3350 [MiraLAX] 17 gm PO DAILY 11/17/14 [History] Ranolazine [Ranexa] 500 mg PO BID #60 tab.er.12h 11/21/14 [Rx] Fludrocortisone Acetate [Florinef] 0.1 mg PO DAILY #30 tablet 12/04/14 [Rx] Albuterol Sulfate [Ventolin Hfa] 2 puff IH Q6H PRN 06/28/15 [History] Cholecalciferol (Vitamin D3) [Vitamin D3] 5,000 unit PO DAILY 06/28/15 [History] Potassium Chloride 10 meq PO DAILY #30 tab.er.prt 06/30/15 [Rx] Acetaminophen [Tylenol] 650 mg PO Q6HR PRN 02/22/16 [History] Bumetanide [Bumex] 1 mg PO BID 02/22/16 [History] Insulin Glargine,Hum.rec.anlog [Lantus Solostar] 10 unit SQ QPM 02/22/16 [ History] Insulin LISPRO [Humalog] 10 unit SQ TIDWM 02/22/16 [History] Pantoprazole Sodium [Protonix] 40 mg PO DAILY 02/22/16 [History] Warfarin [Coumadin] 3 mg PO SUTUTHSA 02/22/16 [History] amLODIPine [Norvasc] 5 mg PO DAILY 30 Days 02/27/16 [Rx] Warfarin [Coumadin] 5 mg PO QMWF 08/02/16 [History] Aspirin 81 mg PO DAILY #30 tab.chew 08/03/16 [Rx] Atorvastatin [Lipitor] 80 mg PO HS #30 tablet 08/03/16 [Rx] Clopidogrel [Plavix] 75 mg PO DAILY #30 tablet 08/03/16 [Rx] Isosorbide MONOnitrate (24 HR) [Imdur] 120 mg PO DAILY #30 tab.er.24h 08/03/16 [ Rx] Carvedilol [Coreg] 25 mg PO BID 09/29/16 [History] FLUoxetine HCl [PROzac] 20 mg PO DAILY 09/29/16 [History] cloNIDine HCl [Clonidine HCl] 0.2 mg PO TID 09/29/16 [History] Allergies adhesive tape Allergy (Verified 09/28/16 23:33) Rash All Systems PM: A 10-system review of systems was performed and is negative for pertinent findings except as documented above in the HPI. Review of systems: Other systems out of the 10 reviewed were negative - Constitutional Vitals: Temp Pulse Resp BP Pulse Ox 98.8 F 82 16 163/51 97 09/29/16 00:19 09/29/16 00:19 09/29/16 00:19 09/29/16 00:19 09/29/16 00:19 General appearance: Present: A&O X 3 - Head Head exam: Present: atraumatic, normocephalic - Eye Eye exam: Present: PERRL, conjuntiva pink, sclera anicteric Pupils: Present: PERRL - Neck Neck exam general surgery: Present: supple, trachea midline. Absent: lymphadenopathy - Respiratory Respiratory exam: Present: CTAB, rales (Fine bibasilar crackles ). Absent: accessory muscle use, rhonchi, wheezes - Cardiovascular Cardiovascular exam: Present: RRR, +S1, +S2. Absent: diastolic murmur, gallop, rubs, systolic murmur - GI/Abdominal GI/Abdominal exam: Present: normal bowel sounds, soft, no peritoneal signs. Absent: distended, tenderness - Extremities Exam Extremities exam: Present: warm, radial pulses palpable and symetrical. Absent : calf tenderness, cyanotic, pedal edema Additional comments: Right upper extremity fistula not bleeding at the moment, covered by dressing - Neurological Exam Neurological exam: Present: CN II-XII intact, oriented X3, no focal deficits. Absent: pronater drift, facial droop, speech deficit - Skin Skin exam: Present: dry, intact Internal Med - H&P Results - Labs CBC & Chem 7: 09/28/16 19:10 09/28/16 19:10
[2016-09-29 04:14] LABS: Hematocrit 26.9 % (37.5-50.1); Hemoglobin 8.9 g/dL (12.9-16.9); Mean Corpuscular HGB Conc 33.1 g/dL (31.6-35.5); Mean Corpuscular Hemoglobin 31.9 pg (28.0-33.3); Mean Corpuscular Volume 96.4 fL (83.0-100.0); Mean Platelet Volume 10.7 fL (9.4-12.4); Platelet Count 191 K/mcL (140-400); Red Blood Count 2.79 M/mcL (4.19-5.50); Red Cell Distribution Width 13.8 % (11.5-14.5)
[2016-09-29 04:16] LABS: Chol/HDL Ratio 6.8 (0-4.9)
--- NOTE | 2016-09-29 08:26 | Electrocardiograph Report ---
[place] [id number] Test Date: 2016-09-28 Pat Name: Marino Diaz Department: 105 Room: 2A Gender: M Van Loader: EKP : 1940 Requested By: Homer Ordoñez Order Number: [id number] Reading MD: Gregg Tejada MD Measurements Intervals [place] Rate: 62 P: 5 FL: 169 QRS: -54 QRSD: 184 T: 120 QT: 486 QTc: 492 Interpretive Statements [employer] Electronically Signed On 09-29-2016 8:24:39 EDT by Gregg Tejada MD
[2016-09-29] MEDS: Insulin LISPRO 300 UNITS/3 ML VIAL SQ SCH ×6 (08:48→16:09)
[2016-09-29] MEDS: cloNIDine HCl 0.1 MG TABLET PO SCH ×2 (08:48→16:08)
[2016-09-29] MEDS ORDERED: amLODIPine 5 MG TABLET PO SCH (09:00)
[2016-09-29] MEDS ORDERED: Isosorbide MONOnitrate (24 HR) 60 MG TAB.ER.24H PO SCH (09:00)
[2016-09-29] MEDS ORDERED: Ranolazine 500 MG TAB.ER.12H PO SCH (09:00)
[2016-09-29] MEDS ORDERED: Aspirin 81 MG TAB.CHEW PO SCH (09:00)
[2016-09-29] MEDS ORDERED: Bumetanide 1 MG TABLET PO SCH ×2 (09:00→17:00)
[2016-09-29] MEDS ORDERED: FLUoxetine 20 MG CAPSULE PO SCH (09:00)
[2016-09-29] MEDS ORDERED: Albuterol 2.5 MG/3 ML NEBULIZER IH PRN (09:09)
[2016-09-29 11:33] LABS: Calcium 8.1 mg/dL (8.6-10.8); Magnesium 1.5 mg/dL (1.6-2.6); Phosphorous 2.9 mg/dL (2.3-4.7); Potassium 3.5 mEq/L (3.5-4.5)
--- NOTE | 2016-09-29 13:15 | Nephrology Consult Note ---
Date of Encounter: 09/29/16 Time of Encounter: 12:00 History of Present Illness - Reason for Consult Consult date: 09/29/16 end stage renal disease - History of Present Illness 76 y o male with PMH Past Med Surg Social Fam HX - Past Medical History Medical history: arthritis, atrial fibrillation (On Coumadin), cardiomyopathy, CHF (Diastolic), COPD (Oxygen dependent), coronary artery disease (Status post stents), CVA, DVT, diabetes (Insulin-dependent), GERD, hyperlipidemia, hypertension, myocardial infarction, osteoporosis, renal disease (End-stage renal disease on hemodialysis twice a week), thyroid disease, TIA, other (TIAs, sick sinus syndrome status post pacemaker, squamous cell carcinoma and basal cell carcinoma of his scalp status post removal, chronically elevated troponins , hypothyroidism) Psychiatric history: no psych history - Past Surgical History Surgical History: angioplasty/stent, appendectomy, cholecystectomy, coronary bypass (CABG), orthopedic, other, other, pacemaker - Social History Smoking Status: Never smoker Smokeless Tobacco Status: No Alcohol use: none Drug use: none - Family History Sister Living Status: Still Living Hx Family Cardiac Disorders: No Hx Family Respiratory Disorders: No Hx Family Cancer: No Hx Family GI Disorders: No Hx Family Endocrine Disorder: No Hx Family Neuromuscular Disorders: No Hx Family Neurologic Disorders: Yes Hx Family HEENT Disorders: No Hx Family Autoimmune Disorders: No Father Living Status: Hx Family Cardiac Disorders: No Hx Family Respiratory Disorders: No Hx Family Cancer: Yes Hx Family GI Disorders: No Hx Family Endocrine Disorder: No Hx Family Neuromuscular Disorders: No Hx Family Neurologic Disorders: No Hx Family HEENT Disorders: No Hx Family Autoimmune Disorders: No Mother Living Status: Hx Family Cardiac Disorders: No Hx Family Respiratory Disorders: No Hx Family Cancer: Yes Hx Family GI Disorders: No Hx Family Endocrine Disorder: No Hx Family Neuromuscular Disorders: No Hx Family Neurologic Disorders: No Hx Family HEENT Disorders: No Hx Family Autoimmune Disorders: No Medications and Allergies Levothyroxine [Synthroid] 88 mcg PO DAILY 11/17/14 [History] Nitroglycerin [Nitrostat] 0.4 mg SL PRN PRN 11/17/14 [History] Polyethylene Glycol 3350 [MiraLAX] 17 gm PO DAILY 11/17/14 [History] Ranolazine [Ranexa] 500 mg PO BID #60 tab.er.12h 11/21/14 [Rx] Fludrocortisone Acetate [Florinef] 0.1 mg PO DAILY #30 tablet 12/04/14 [Rx] Albuterol Sulfate [Ventolin Hfa] 2 puff IH Q6H PRN 06/28/15 [History] Cholecalciferol (Vitamin D3) [Vitamin D3] 5,000 unit PO DAILY 06/28/15 [History] Potassium Chloride 10 meq PO DAILY #30 tab.er.prt 06/30/15 [Rx] Acetaminophen [Tylenol] 650 mg PO Q6HR PRN 02/22/16 [History] Bumetanide [Bumex] 1 mg PO BID 02/22/16 [History] Insulin Glargine,Hum.rec.anlog [Lantus Solostar] 10 unit SQ QPM 02/22/16 [ History] Insulin LISPRO [Humalog] 10 unit SQ TIDWM 02/22/16 [History] Pantoprazole Sodium [Protonix] 40 mg PO DAILY 02/22/16 [History] Warfarin [Coumadin] 3 mg PO SUTUTHSA 02/22/16 [History] amLODIPine [Norvasc] 5 mg PO DAILY 30 Days 02/27/16 [Rx] Warfarin [Coumadin] 5 mg PO QMWF 08/02/16 [History] Aspirin 81 mg PO DAILY #30 tab.chew 08/03/16 [Rx] Atorvastatin [Lipitor] 80 mg PO HS #30 tablet 08/03/16 [Rx] Clopidogrel [Plavix] 75 mg PO DAILY #30 tablet 08/03/16 [Rx] Isosorbide MONOnitrate (24 HR) [Imdur] 120 mg PO DAILY #30 tab.er.24h 08/03/16 [ Rx] Carvedilol [Coreg] 25 mg PO BID 09/29/16 [History] FLUoxetine HCl [PROzac] 20 mg PO DAILY 09/29/16 [History] Sennosides/Docusate Sodium [Senna-S Tablet] 2 tab PO BID 09/29/16 [History] cloNIDine HCl [Clonidine HCl] 0.2 mg PO TID 09/29/16 [History] Allergies adhesive tape Allergy (Verified 09/28/16 23:33) Rash Exam - Vital Signs Vital signs: Initial Vital Signs Temp Pulse Resp BP Pulse Ox 98.3 F 63 16 157/58 98 09/28/16 18:32 09/28/16 18:32 09/28/16 18:32 09/28/16 18:32 09/28/16 18:32 Vital Signs - Last 8 Hours Temp Pulse Resp BP Pulse Ox 09/29/16 10:21 98.4 F 68 18 134/66 90 09/29/16 08:44 98 F 70 18 150/72 93 Intake and Output 09/28/16 09/29/16 09/29/16 23:59 07:59 15:59 Intake Total 0 / 0 480 / 480 Output Total 0 / 0 Balance 0 / 0 480 / 480 Intake: Oral 0 / 0 480 / 480 Output: Urine 0 / 0 Other: Meal Lunch Percent of Meal Consumed 100% Weight 78.109 kg Blood Glucose* 160 177 Patient Weight 09/29/16 23:59 Weight 78.109 kg Results - Lab Results 09/29/16 03:55 09/29/16 09:43 Most recent lab results Calcium 8.1 mg/dL (8.6-10.8) L 09/29/16 09:43 Phosphorus 2.9 mg/dL (2.3-4.7) 09/29/16 09:43 Magnesium 1.5 mg/dL (1.6-2.6) L 09/29/16 09:43 Consult Discharge Plan - Plan Referrals: NO,PCP [Primary Care Provider] -
[2016-09-29] MEDS ORDERED: Magnesium Sulfate 1 GM in D5% in Water 100 ML IVPB ONE (13:28)
[2016-09-29 13:42] LABS: INR 1.8; Prothrombin Time 19.9 Seconds (9.4-12.1)
--- NOTE | 2016-09-29 15:34 | Discharge Summary ---
Date of Encounter: 09/29/16 Time of Encounter: 11:50 - Discharge Diagnosis (1) Hemorrhage of arteriovenous fistula Priority: Primary Status: Acute Qualifiers: Encounter type: initial encounter Qualified Code(s): T82.838A - Hemorrhage due to vascular prosthetic devices, implants and grafts, initial encounter (2) Hypothyroidism Priority: Secondary Status: Chronic Qualifiers: Hypothyroidism type: unspecified Qualified Code(s): E03.9 - Hypothyroidism , unspecified (3) Atrial fibrillation Priority: Secondary Status: Chronic Qualifiers: Atrial fibrillation type: chronic Qualified Code(s): I48.2 - Chronic atrial fibrillation (4) Anemia in chronic kidney disease (CKD) Priority: Secondary Status: Chronic (5) End stage renal disease Priority: Secondary Status: Chronic (6) Diastolic CHF Priority: Secondary Status: Chronic Qualifiers: Congestive heart failure chronicity: chronic Qualified Code(s): I50.32 - Chronic diastolic (congestive) heart failure (7) Chest pain Priority: Primary Status: Acute Qualifiers: Chest pain type: precordial pain Qualified Code(s): R07.2 - Precordial pain - Discharge Medications Home Medications: Levothyroxine [Synthroid] 88 mcg PO DAILY 11/17/14 [History] Nitroglycerin [Nitrostat] 0.4 mg SL PRN PRN 11/17/14 [History] Polyethylene Glycol 3350 [MiraLAX] 17 gm PO DAILY 11/17/14 [History] Ranolazine [Ranexa] 500 mg PO BID #60 tab.er.12h 11/21/14 [Rx] Fludrocortisone Acetate [Florinef] 0.1 mg PO DAILY #30 tablet 12/04/14 [Rx] Albuterol Sulfate [Ventolin Hfa] 2 puff IH Q6H PRN 06/28/15 [History] Cholecalciferol (Vitamin D3) [Vitamin D3] 5,000 unit PO DAILY 06/28/15 [History] Potassium Chloride 10 meq PO DAILY #30 tab.er.prt 06/30/15 [Rx] Acetaminophen [Tylenol] 650 mg PO Q6HR PRN 02/22/16 [History] Bumetanide [Bumex] 1 mg PO BID 02/22/16 [History] Insulin Glargine,Hum.rec.anlog [Lantus Solostar] 10 unit SQ QPM 02/22/16 [ History] Insulin LISPRO [Humalog] 10 unit SQ TIDWM 02/22/16 [History] Pantoprazole Sodium [Protonix] 40 mg PO DAILY 02/22/16 [History] Warfarin [Coumadin] 3 mg PO SUTUTHSA 02/22/16 [History] amLODIPine [Norvasc] 5 mg PO DAILY 30 Days 02/27/16 [Rx] Warfarin [Coumadin] 5 mg PO QMWF 08/02/16 [History] Aspirin 81 mg PO DAILY #30 tab.chew 08/03/16 [Rx] Atorvastatin [Lipitor] 80 mg PO HS #30 tablet 08/03/16 [Rx] Clopidogrel [Plavix] 75 mg PO DAILY #30 tablet 08/03/16 [Rx] Isosorbide MONOnitrate (24 HR) [Imdur] 120 mg PO DAILY #30 tab.er.24h 08/03/16 [ Rx] Carvedilol [Coreg] 25 mg PO BID 09/29/16 [History] FLUoxetine HCl [Prozac] 20 mg PO DAILY 09/29/16 [History] Sennosides/Docusate Sodium [Senna-S Tablet] 2 tab PO BID 09/29/16 [History] cloNIDine HCl [Clonidine HCl] 0.2 mg PO TID 09/29/16 [History] Allergies/Adverse Reactions: Allergies adhesive tape Allergy (Verified 09/28/16 23:33) Rash Date of admission: 09/28/16 23:17 Primary care physician: PCP [facility] Consults: 09/29/16 01:38 Consult to Nephrology [CONS] Routine Consulting Provider: Tierra Llanes Reason for Consult: esrd on hd Call Completed: No Discharging clinician: Brea Leal Anticipated date of discharge: 09/29/16 - Patient Status Disposition: Home, Self-Care Condition: Fair Functional capacity at discharge: uses cane/walker Overall status at discharge: patient is progressing back to baseline - Discharge Instructions Follow Up With: IV[facility],PCP [Primary Care Provider] - Additional Instructions: F/up for HD 2 times/week- MF - Diet and Activity Activity: wear oxygen at all times Diet: low fat, low cholesterol, low salt diet, other (renal diet) Hospital course: Mr. Diaz is a 76 year old male with end-stage renal disease on hemodialysis, was admitted with complaints of bleeding AV fistula on his right arm. Hemoglobin was noted to be stable and patient's bleeding has been controlled since admission. Nephrology was consulted and patient did not require any urgent hemodialysis, his AV fistula site has been evaluated by nephrology and patient is cleared for discharge. His regular hemodialysis days are Tuesday and Tuesday and he is recommended to follow up as an outpatient for further assessment of her AV fistula-like fistulogram. Patient also complained of nonspecific retrosternal chest pain at admission. EKG and telemetry monitoring showed no acute changes. Serial troponins remained flat and adynamic, around 0.05. This is likely due to demand ischemia and underlying end-stage renal disease. Patient is otherwise medically stable for discharge. - Time Spent with Patient Total time spent providing and/or coordinating discharge services: Greater than 30 minutes (45 min) - Constitutional Vitals: Temp Pulse Resp BP Pulse Ox 98.4 F 68 18 134/66 90 09/29/16 10:21 09/29/16 10:21 09/29/16 10:21 09/29/16 10:21 09/29/16 10:21 General appearance: Present: A&O X 2 (poor memory). Absent: answers questions appropriately - Cardiovascular Cardiovascular exam: Present: RRR, +S1, +S2, systolic murmur. Absent: diastolic murmur, gallop, rubs - Extremities Exam Extremities exam: Present: warm, radial pulses palpable and symetrical. Absent : calf tenderness, cyanotic, pedal edema Additional comments: Right arm AVF with good thrill, no active bleeding;
[2016-09-29 15:36] VITALS: BP 135/53
[2016-09-29] MEDS ORDERED: *HR* Warfarin 5 MG TABLET PO SCH ×2 (18:00)
[2016-09-29] MEDS ORDERED: Warfarin perPT PO PRN (18:00)
[2016-09-29] MEDS ORDERED: Insulin DETEMIR 100 UNIT/ML X5UNITS SQ SCH (18:00)
[2016-09-29] MEDS ORDERED: Aminoglycoside Consult 1 EACH MC ONE (18:07)
[2016-09-29] MEDS ORDERED: Insulin LISPRO 300 UNITS/3 ML VIAL SQ SCH (21:00)
[2016-09-30] MEDS ORDERED: *HR* Warfarin 3 MG TABLET PO SCH (18:00)
== END 2016-09-29 18:08 | disposition home or self-care (01) ==
LOC: 2ANU 18:28 → EMEROO 18:28 → 2ANU 09-29 00:02
PROVIDERS: ADMIT Internal Medicine; ATTEND Internal Medicine